=== PATIENT | male | born 1935 | race Caucasian/White ===

== ENCOUNTER → 2020-10-08 10:13 | Outpatient (BNVA) | payer MEDICARE, SELFPAY | PROVIDERS: PCP Internal Medicine; Visit Provider Hospitalist | DX: J43.2 Centrilobular emphysema (principal); J96.11 Chronic respiratory failure with hypoxia; C34.90 Malignant neoplasm of unspecified part of unspecified bronchus or lung | CPT/HCPCS: 99212 ==

== ENCOUNTER 2021-01-30 10:10 | Outpatient (REF) | payer MEDICARE, SELFPAY ==
--- NOTE | ~2021-01-30 | CT_ITS ---
EXAMINATION: CT CHEST WITHOUT CONTRAST CLINICAL INFORMATION: Malignant neoplasm. COMPARISON: None. TECHNIQUE: Multidetector volumetric CT imaging of the chest was done. Axial MIP volume rendering provided. Sagittal and coronal reformatted images were obtained. This CT examination was performed using dose optimization techniques as appropriate, variously including the following: *Automated exposure control *Adjustment of mA and/or kV according to patient size (this includes techniques or standardized protocols for targeted exams where dose is matched to indication/reason for exam; i.e. extremities or head) *Use of iterative reconstruction technique DLP: 185 mGy-cm FINDINGS: TECHNICAL SUPPORT PROFESSIONAL: Well-expanded lungs with mild haziness in the right lung base. LUNGS: There is centrilobular emphysema with patchy ill-defined densities in both lower lobes, likely atelectasis. There are postsurgical changes right upper lobe with slight loss of right upper lobe volume and ipsilateral mediastinal shift. There is mild bullous changes in the right upper lobe. Focal atelectatic changes seen in the left upper lobe superior segment with adjacent 6 x 7 mm nodule and mild tenting of the superior major fissure. Suspicious 4 mm subpleural nodule superior segment left lower lobe image 231/8, 2 mm calcified granulomas left upper lobe and right upper lobe axial image 57/7, right lower lobe image 72/7 and bilateral lower lobes image 103/7. MEDIASTINUM: The heart size and the great vessels are normal caliber. There are small shotty lymph nodes seen in the mediastinum. The largest aortic window lymph node measures 1.4 x 0.8 cm. The central trachea and the bronchi widely patent. Minimal coronary artery calcifications are present. There is no pericardial effusion. PLEURA: There is no pleural effusion. No pleural mass or thickening. AXILLA: No lymphadenopathy. UPPER ABDOMEN: Visualized liver, spleen, pancreas and bilateral adrenal glands are unremarkable. There is likely an infrarenal IVC filter. The gallbladder is distended and unremarkable. OSSEOUS STRUCTURES: No lytic or sclerotic process seen. CT/CT chest wo con IMPRESSION: Diffuse centrilobular emphysema with postsurgical changes right upper lobe. There is a worrisome nodule measuring 7 mm left upper lobe superior segment with tenting of superior major fissure. Suspicious 4 mm subpleural nodule left lower lobe. Calcified scattered granulomas, bullous changes in right upper lobe. There is 1.4 x 0.8 cm aortic window lymph node, worrisome. There are no previous exams available for comparison.
== END 2021-01-30 10:11 | disposition home or self-care (01) ==
LOC: HO.CT 10:10
PROVIDERS: Visit Provider Hospitalist
DX: C34.90 Malignant neoplasm of unspecified part of unspecified bronchus or lung (principal)
CPT/HCPCS: 71250

== ENCOUNTER → 2021-03-12 10:06 | Outpatient (BNVA) | payer MEDICARE, SELFPAY | PROVIDERS: PCP Internal Medicine; Visit Provider Hospitalist | DX: J96.11 Chronic respiratory failure with hypoxia (principal); J43.2 Centrilobular emphysema; C34.90 Malignant neoplasm of unspecified part of unspecified bronchus or lung; R59.0 Localized enlarged lymph nodes; R91.8 Other nonspecific abnormal finding of lung field; Z79.899 Other long term (current) drug therapy | CPT/HCPCS: 99212 ==

== ENCOUNTER 2021-08-13 15:19 | Outpatient (REF) | payer MEDICARE, SELFPAY ==
[2021-08-13 16:45] LABS: Anion Gap 12 (12-20); Blood Urea Nitrogen 23 mg/dL (9-16); Calcium 10.4 mg/dL (8.4-10.2); Carbon Dioxide 28 mmol/L (22-29); Chloride 102 mmol/L (96-108); Estimated Glomerular Filt Rate > 60; Glucose Random 93 mg/dL (60-115); Potassium 4.2 mmol/L (3.3-5.1); Sodium 138 mmol/L (135-145)
== END 2021-08-13 15:20 | disposition home or self-care (01) ==
LOC: HO.LAB 15:19
PROVIDERS: PCP Internal Medicine; Visit Provider Hospitalist
DX: C34.90 Malignant neoplasm of unspecified part of unspecified bronchus or lung (principal); R59.0 Localized enlarged lymph nodes; R91.8 Other nonspecific abnormal finding of lung field
CPT/HCPCS: 36415; 80048

== ENCOUNTER 2021-08-28 10:48 | Outpatient (REF) | payer MEDICARE, SELFPAY ==
--- NOTE | ~2021-08-28 | CT_ITS ---
EXAMINATION: CT CHEST WITH CONTRAST CLINICAL INFORMATION: Follow-up pulmonary nodules COMPARISON: Previous chest CT January 2021 TECHNIQUE: Multidetector volumetric CT imaging of the chest was obtained after the administration of 65 mL of Omnipaque 350 intravenous contrast without immediate adverse reactions. Axial MIP volume rendering provided. Sagittal and coronal reformatted images were obtained. This CT examination was performed using dose optimization techniques as appropriate, variously including the following: *Automated exposure control *Adjustment of mA and/or kV according to patient size (this includes techniques or standardized protocols for targeted exams where dose is matched to indication/reason for exam; i.e. extremities or head) *Use of iterative reconstruction technique DLP: 153 mGy-cm FINDINGS: LUNGS: There are postsurgical changes from right middle lobe lobectomy. There is stable biapical pleural parenchymal scarring, right greater than left. There is evidence of emphysema. There is a 2 mm calcified right upper lobe nodule axial image 73 series 7 that is stable. There is a 5 x 10 mm superior segment left lower lobe nodule adjacent to the fissure axial image 70 series 7. There is retraction of the fissure. This appears unchanged from previous exam. There are small nodules in the inferior segment of the lingula, largest measuring 4 mm axial image 176 series 7 that are stable. No new pulmonary nodule is seen. There is a scarring or subsegmental atelectasis lung bases. No endobronchial or endotracheal lesion is seen. MEDIASTINUM: There is mild coronary artery calcification. The heart does not appear enlarged. There is no pericardial effusion. There are no enlarged hilar or mediastinal lymph nodes. PLEURA: There is no pleural effusion. No pleural mass or thickening. AXILLA: No lymphadenopathy. UPPER ABDOMEN: There are bilateral renal low-attenuation lesions suggestive of cysts. There is diverticulosis of the colon. There is a partially visualized IVC filter. There may be fatty infiltration of the liver. OSSEOUS STRUCTURES: There are degenerative changes of the spine. There are postsurgical changes to the right third and fourth ribs. CT/CT chest w con IMPRESSION: Emphysema. Stable postsurgical changes following right middle lobe lobectomy. Stable pulmonary nodules, largest measuring 5 x 10 mm in the superior segment of the left lower lobe. Fleischner guidelines were followed.
[2021-08-28] MEDS: iohexoL 350 MG/ML 100 ML INFUS..BTL 65 ML IV (11:32)
== END 2021-08-28 10:49 | disposition home or self-care (01) ==
LOC: HO.CT 10:48
PROVIDERS: PCP Internal Medicine; Visit Provider Hospitalist
DX: R91.8 Other nonspecific abnormal finding of lung field (principal)
CPT/HCPCS: 71260; Q9967

== ENCOUNTER → 2021-09-01 09:53 | Outpatient (BNVA) | payer MEDICARE, SELFPAY | PROVIDERS: PCP Internal Medicine; Visit Provider Hospitalist | DX: J96.11 Chronic respiratory failure with hypoxia (principal); R13.10 Dysphagia, unspecified; J43.2 Centrilobular emphysema; C34.90 Malignant neoplasm of unspecified part of unspecified bronchus or lung | CPT/HCPCS: 99212 ==

== ENCOUNTER → 2021-12-31 09:38 | Outpatient (BNVA) | payer OTHER, SELFPAY | PROVIDERS: PCP Internal Medicine; Visit Provider Hospitalist | DX: J96.11 Chronic respiratory failure with hypoxia (principal); J43.2 Centrilobular emphysema; C34.90 Malignant neoplasm of unspecified part of unspecified bronchus or lung; R91.8 Other nonspecific abnormal finding of lung field | CPT/HCPCS: 94618; 99212 ==

== ENCOUNTER → 2022-07-02 09:48 | Outpatient (BNVA) | payer OTHER, SELFPAY | PROVIDERS: PCP Internal Medicine; Visit Provider Hospitalist | DX: J96.11 Chronic respiratory failure with hypoxia (principal); J43.2 Centrilobular emphysema; C34.90 Malignant neoplasm of unspecified part of unspecified bronchus or lung; R91.8 Other nonspecific abnormal finding of lung field | CPT/HCPCS: 99212 ==

== ENCOUNTER 2022-07-26 09:08 | Outpatient (REF) | payer OTHER, SELFPAY ==
--- NOTE | ~2022-07-26 | CT_ITS ---
EXAMINATION: CT CHEST WITHOUT CONTRAST CLINICAL INFORMATION: COMPARISON: Previous chest CT scans most recent August 2021 TECHNIQUE: Multidetector volumetric CT imaging of the chest was done. Axial MIP volume rendering provided. Sagittal and coronal reformatted images were obtained. This CT examination was performed using dose optimization techniques as appropriate, variously including the following: *Automated exposure control *Adjustment of mA and/or kV according to patient size (this includes techniques or standardized protocols for targeted exams where dose is matched to indication/reason for exam; i.e. extremities or head) *Use of iterative reconstruction technique DLP: 332 mGy-cm FINDINGS: LUNGS: There is evidence of emphysema. There are are postsurgical changes following right middle lobe lobectomy. There is increased masslike consolidation with air bronchograms in the right lower lobe. There are surrounding increased interstitial markings with interlobular septal thickening. There are more anterior smaller nodular opacities adjacent to the fissure largest measuring 1.2 cm axial image 310 series 4. These findings are new or increased compared to previous exams. There is increased groundglass attenuation in the medial right lower lobe posterior to the heart axial image 305 series 4. There is a smaller area of increased peripheral or subpleural attenuation in the right lower lobe axial image 320 series 4. These findings are new compared to previous chest CT from 2020. There is a 3 mm calcified right upper lobe nodule axial image 73 series 7 that is stable. There is a 8 mm peripheral or subpleural superior segment left lower lobe nodule adjacent to the fissure and some retraction of the fissure that is stable. There is a small peripheral or subpleural nodule versus atelectasis measuring 5 mm in the left lower lobe axial image 87 series 7 that is stable. There is a 7 mm lingular nodule axial image 176 series 7 that is stable. No endobronchial or endotracheal lesion. MEDIASTINUM: There are surgical clips in the right hilum. There are no enlarged hilar or mediastinal lymph nodes. Normal heart size. No pericardial effusion. CORONARY ARTERY CALCIFICATION: Mild PLEURA: There is no pleural effusion. No pleural mass or thickening. AXILLA: No lymphadenopathy. UPPER ABDOMEN: There may be fatty infiltration of the liver. There is a right renal cyst. There is diverticulosis. IVC filter partially visualized. OSSEOUS STRUCTURES: Posttraumatic or post surgical changes to the right third fourth and third CT/CT chest wo IV con IMPRESSION: Postsurgical changes following right middle lobe lobectomy. Increasing masslike consolidation with air bronchograms in the right lower lobe and surrounding increased interstitial markings and interlobular septal thickening. Infectious, inflammatory and neoplastic processes should be considered. New groundglass attenuation in the medial right lower lobe and smaller areas of increased peripheral or subpleural attenuation in the right lower lobe. Stable bilateral pulmonary nodules. Emphysema. Fleischner guidelines were followed.
--- NOTE | 2022-07-26 13:39 | PFT_ITS ---
Forced vital capacity 81%, FEV1 at 45%, FEV1/FVC ratio was 39, [id number] is 17%, and MVV 44%. Postbronchodilator therapy, there is no significant change. Total lung capacity 69%. Residual volume 65%. Diffusion capacity 21%. CONCLUSION: 1. Restrictive pulmonary disorder, moderately severe. 2. Severe obstructive airway disorder. 3. No response to bronchodilator therapy. 4. Clinical correlation is recommended. MD YONATHAN Ayala/MOD[facility] / [id number]
== END 2022-07-26 09:09 | disposition home or self-care (01) ==
LOC: HO.CT 09:08
PROVIDERS: PCP Internal Medicine; Visit Provider Hospitalist
DX: R91.8 Other nonspecific abnormal finding of lung field (principal); J43.2 Centrilobular emphysema
CPT/HCPCS: 71250; 94060; 94727; 94729

== ENCOUNTER 2022-08-17 09:12 | Outpatient (REF) | payer OTHER, SELFPAY ==
--- NOTE | ~2022-08-17 | PE_ITS ---
EXAMINATION: Fluorine-18 FDG PET/CT Scan CLINICAL INDICATION: Initial treatment management. Squamous cell carcinoma right lung. PROCEDURE: 59 minutes following the intravenous administration of 15.3 mCi of fluorine 18 FDG, images from the base of the skull to the mid thighs were obtained using a combined PET/CT scanner with CT scan based attenuation correction. No oral contrast was administered. No intravenous contrast was administered. Transverse, coronal, sagittal, and volume reconstruction projections were obtained. The patient's blood glucose as determined by a finger stick, was 109 mg/dl immediately prior to injection. Total CT exam dose-length product 644.93 mGy-cm * These CT images were obtained using dose optimization techniques as appropriate, variously including the following: Automated exposure control * Adjustment of mA and/or kV according to patient size (this includes techniques or standardized protocols for targeted exams where dose is matched to indication/reason for exam; i.e. extremities or head) * Use of iterative reconstruction technique COMPARISON: No previous PET/CT scan is available for comparison. CT scan of the chest dated 07/26/2022 is available for comparison. FINDINGS: (Slice numbers described in this report are numbered superiorly to inferiorly with slice #1 in the head) NECK AND VISUALIZED HEAD: There is a small focus of mildly increased FDG activity in the high right temporalis muscle, likely physiological. No foci of abnormal FDG activity are noted in the neck or visualized head. The distribution of FDG activity is physiological. There is no cervical lymphadenopathy. THORAX: The patient is status post right middle lobectomy, with surgical clips present medially in the mid right lung. There is an FDG avid posterolateral pleural-based opacity in the right upper lobe, SUVmax 3.3, slice 77/267. This measures 2.c 4 x 1.3 cm in largest transverse dimensions and approximately 2.1 cm cephalocaudad. This was not present on the 07/26/[address] scan. There is also opacity in the posterior aspect of the right upper lobe abutting the interlobar fissure which probably represents some fluid and is slightly more prominent than this opacity on the 07 2201/20/[address] scan and this shows weak FDG activity, SUVmax 1.9, slice 87/267. There is weak FDG activity associated with a groundglass opacity in the lingula showing SUVmax 2.1, slice 97/267. This also was not present on 07/26/2022. There are no additional foci of abnormally increased FDG activity in the lungs. The masslike consolidation present lateral in the right lower lobe visualized on 07/26/2022 is much smaller in size on the current study. This now has several separate smaller components, the largest of which is more posterior and superior, measuring 1.4 x 1.0 cm in largest transverse dimensions and approximately 0.9 cm cephalocaudad, centered on slice 99/267. Two additional more anterior and superior opacities also show no abnormal FDG activity. There is an additional new 0.8 cm anterior right upper lobe nodular opacity, slice 83/267 which is no abnormal FDG activity. No other suspicious pulmonary nodularity is present. Additional small subcentimeter pulmonary nodules visualized on the diagnostic 07/26/2022 CT scan are not well visualized on these nondiagnostic CT images. Other than the small amount of fluid present in the interlobar fissure described above, no significant pleural or pericardial fluid or pneumothorax is present. There is no mediastinal, supraclavicular, or axillary lymphadenopathy. ABDOMEN AND PELVIS: There are no foci of abnormal FDG activity in the abdomen or pelvis. Mild FDG activity present throughout the gastrointestinal tract is noted and is probably physiological. There is no suspicious focal component. There is diverticulosis without evidence of diverticulitis. The hollow viscera are otherwise unremarkable. The liver, gallbladder, spleen and adrenal glands are unremarkable. There is an exophytic cyst of indeterminate density, Hounsfield units 28 laterally in the lower pole the right kidney is markedly FDG photopenic and probably a simple cyst. A few much smaller cysts are present in both kidneys and none of these shows abnormal FDG activity. The kidneys are otherwise unremarkable. The adrenal glands and pancreas are unremarkable. There is no retroperitoneal, mesenteric, pelvic or inguinal lymphadenopathy. Multiple dense calcifications are present in the prostate gland and this shows mild diffuse FDG activity without a suspicious focal component. MUSCULOSKELETAL: No foci of abnormal FDG activity are present in the osseous structures. Postsurgical changes in the right chest wall are present. A focus of FDG activity adjacent to the right ischial tuberosity is likely due to an enthesopathy. There are degenerative changes in the spine. There is a grade 1 anterolisthesis of L5 on S1. There are no suspicious sclerotic or lytic lesions visualized. VASCULAR: Diffuse vascular calcifications including coronary are noted. There is aneurysmal dilatation of the infrarenal abdominal aorta measuring 4.0 cm in largest AP diameter. An inferior vena caval filter is in place. PET/PET CT fusion skull to thigh IMPRESSION: 1. Several FDG avid opacities have developed, as described above, since the recent 07/26/[address] scan. The most prominent of these is in the posterolateral aspect of the right upper lobe. The short-term development of these would make inflammatory or infectious etiologies the most likely explanation. Malignancy is not strongly suspected because of the recent development. 2. There are postsurgical changes from the right middle lobectomy, but no abnormalities strongly suspicious for recurrent or metastatic malignancy are present. 3. Aneurysmal dilatation of the infrarenal abdominal aorta measuring 4.0 cm. 4. Vascular calcifications including coronary.
== END 2022-08-17 09:13 | disposition home or self-care (01) ==
LOC: HO.PET 09:12
PROVIDERS: PCP Internal Medicine; Visit Provider Hospitalist
DX: C34.90 Malignant neoplasm of unspecified part of unspecified bronchus or lung (principal); J96.11 Chronic respiratory failure with hypoxia; J43.2 Centrilobular emphysema; R91.8 Other nonspecific abnormal finding of lung field
CPT/HCPCS: 99212

== ENCOUNTER 2022-11-19 12:31 | Outpatient (REF) | payer OTHER, SELFPAY ==
--- NOTE | ~2022-11-19 | CT_ITS ---
EXAMINATION: CT CHEST WITHOUT CONTRAST CLINICAL INFORMATION: R91.8 Other nonspecific abnormal finding of lung field. Pulmonary nodule. Lung CA. COMPARISON: None. TECHNIQUE: Multidetector volumetric CT imaging of the chest was done. Axial MIP volume rendering provided. Sagittal and coronal reformatted images were obtained. This CT examination was performed using dose optimization techniques as appropriate, variously including the following: *Automated exposure control *Adjustment of mA and/or kV according to patient size (this includes techniques or standardized protocols for targeted exams where dose is matched to indication/reason for exam; i.e. extremities or head) *Use of iterative reconstruction technique DLP: 169 mGy-cm. FINDINGS: LUNGS: Emphysema. Biapical pleural and parenchymal scarring right greater than left. Postsurgical changes following right middle lobe lobectomy. 6 x 8 mm peripheral or subpleural superior segment left lower lobe nodule abutting the fissure. There is some retraction of the fissure axial image 196 series 6. This is stable. Interval improvement in consolidation with air bronchograms seen in the right lower lobe compared to July 2022, most recent chest CT. Small stable calcified nodules, largest in the right upper lobe axial image 230 series 6. No definite new pulmonary nodules. MEDIASTINUM: Mild coronary artery calcification. Normal heart size. Mild dilatation of the thoracic aorta is stable. Small hilar and mediastinal lymph nodes, stable. Surgical clips in the right hilum. CORONARY ARTERY CALCIFICATION: Mild. PLEURA: There is no pleural effusion. No pleural mass or thickening. AXILLA: No lymphadenopathy. UPPER ABDOMEN: Unremarkable. OSSEOUS STRUCTURES: Degenerative changes of the spine. Postsurgical changes to the right ribs. CT/CT chest wo IV con IMPRESSION: Improved airspace disease with air bronchograms in the right lower lobe compared to July 2022. Otherwise stable exam. Fleischner guidelines were followed.
== END 2022-11-19 12:32 | disposition home or self-care (01) ==
LOC: HO.CT 12:31
PROVIDERS: PCP Internal Medicine; Visit Provider Hospitalist
DX: C34.90 Malignant neoplasm of unspecified part of unspecified bronchus or lung (principal); J44.9 Chronic obstructive pulmonary disease, unspecified; R91.8 Other nonspecific abnormal finding of lung field
CPT/HCPCS: 71250

== ENCOUNTER → 2022-11-26 09:55 | Outpatient (BNVA) | payer OTHER, SELFPAY | PROVIDERS: PCP Internal Medicine; Visit Provider Hospitalist | DX: J43.2 Centrilobular emphysema (principal); J96.11 Chronic respiratory failure with hypoxia; K74.3 Primary biliary cirrhosis; L94.0 Localized scleroderma [morphea]; R91.8 Other nonspecific abnormal finding of lung field; Z85.118 Personal history of other malignant neoplasm of bronchus and lung; Z79.899 Other long term (current) drug therapy | CPT/HCPCS: 94618; 99212 ==

== ENCOUNTER 2023-05-24 09:30 | Outpatient (AMB) | payer OTHER, SELFPAY ==
[2023-05-24 09:35] VITALS: BP 138/64; PULSE 75; O2SAT 97; BMI 26.0
--- NOTE | 2023-05-24 09:35 | MHC.OFFVIS ---
Intake Vital Signs 05/24/23 09:35 Height 5 ft 11 in Weight 186 lb 4.65 oz BMI 26.0 BP 138/64 Blood Pressure Location Lt brachial Position Sitting Pulse 75 Pulse Source Pulse Oximeter Pulse Oximetry (%) 97 Oxygen Delivery Method Nasal Cannula Oxygen Flow Rate 4 Intake Visit Reasons: COPD Allergies penicillin V Allergy (Severe, Verified 05/24/23 09:37) Swollen Ankle HPI HPI Comments History of Present Illness Details The patient is an 88-year-old gentleman known COPD, lung cancer status post therapy. He did follow-up recently with his oncologist and has been doing very well. He did have a CT scan last month done at [facility] and per report was stable. He has had to use oxygen for his chronic respiratory failure due to his COPD. Previously on 2 L and sometimes he will be able to take it off at rest. However, for the last month and a half he has been getting worse. He has noticed increased cough with white sputum increasing shortness of breath. He has had to increase oxygen to 4. He has not had any fever or any others symptoms. The other family members were tested for COVID-19 which was negative there were tested because of surgical needs. There were not symptomatic. 08/17/2022 the patient is here for a pulmonary follow-up visit. The patient overall is feeling worsening shortness of breath. He has had to increase his oxygen from 3-4 L. he is having issues getting enough oxygen tanks from his [facility] company. Will make a call to see if he can have that corrected. The patient did have a PET scan in view of the abnormal CT scan that he had recently. We did review the PET scan although I was not finally read. Initially appeared that there was a nodular density that had significant FDG activity in the right upper lung zone. However, this area did not correlate with the initial abnormal finding on the CT scan that prompted the PET scan. Suggesting that this is likely a inflammatory infectious process since is appears to be involving. There is a waxing waning component. Although malignancy still in differential. Will go ahead and% and a tumor conference to make sure that can provide him a multi disciplinary approach to his decision making. In the meantime will start him on antibiotics and I will follow-up with him after discussion during the tumor conference. 11/26/2022 the patient is here for pulmonary follow-up visit. Continues to have shortness of breath with activity. Specially when going up a flight of stairs. He does use the oxygen continuously. In the office we did every 6 minute walk test. He actually did well lobe air while sitting for a few minutes. Then with minimal activity quickly desaturated down to the low 80s. The patient did require up to 4-5 L to maintain a pulse ox in the low 90s with activity. Therefore is okay for him to increase the oxygen to 5 L specially diffuse going up a flight of stairs or a incline. We can consider a Oxymizer pendant if his oxygen requirement still continue to be high. He is already maximized on his respiratory therapy. In addition to that he did undergo a CT scan of the chest that we personally reviewed in the office. It appears that he has resolution of the airspace disease that he had previously noted. This is all reassuring that it was likely infectious process. He completed the antibiotics and he no longer needs further antibiotic therapy. 05/24/2023 the patient is here for pulmonary follow-up visit. Overall he is feeling well. He is sometimes taken off the oxygen during the daytime and taking a pulse ox of 92% which is reassuring. However at nighttime sometimes oxygen goes up to 99% on his oxygen. I did advise him to decrease the oxygen down to 3 L while sleeping. Will perform an overnight oximetry to make sure that his pulse ox is within normal limits. Patient understands that his pulse ox is too high this can result in central sleep apnea which could worsen his overall respiratory status. As far as his lung cancer history he had a CT scan back in November 2022 which appeared to be stable. Will plan to repeat the CT scan again in November 2023. The patient also continues current respiratory therapy. He is having some issues carrying the oxygen because he is having some contractures of his hands bilaterally. Therefore I will make a referral over to orthopedic surgery. 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) Surgical History (Updated 12/31/21 @ 10:26 by Paige Singh PA-C) History of thoracotomy (~2014) Social History (Updated 09/01/21 @ 10:08 by SANJAY Sahfer) Patient Tobacco Use Status: Former Tobacco user Tobacco use type: Cigarette Years Smoked: 50yrs Review of Systems Const Denies night sweats ENT Denies change in voice, Reports dysphagia, Denies lip swelling, Denies mouth pain, Reports nasal congestion, Reports nasal discharge and Denies tongue swelling Card Denies chest pain, Reports leg edema and Reports dyspnea on exertion Resp Reports cough and Reports dyspnea on exertion GI Reports dysphagia Musc Denies no additional complaints, Reports limited range of motion and Reports other (hand contractures) Neuro Denies Neuro-related abnormal movements Psych Denies no additional complaints Rasta/Lymph Denies easy bleeding and Denies lymphadenopathy Aller/Immun Denies lip swelling and Denies tongue swelling Physical Exam Vital Signs: Last Vital Signs Pulse 75 05/24/23 09:35 BP 138/64 05/24/23 09:35 Pulse Ox 97 05/24/23 09:35 Oxygen Delivery Method Nasal Cannula 05/24/23 09:35 Oxygen Flow Rate 4 05/24/23 09:35 BMI result Body Mass Index 26.0 Const General: alert Neck Neck: Yes normal visual inspection, Yes full ROM and Yes no lymphadenopathy Chest Chest palpation & inspection: normal inspection of the chest Resp Auscultation: wheezes and diminished lung sounds Cardio Rate: regular rate Rhythm: regular rhythm Heart sounds: S1 normal heart sound present and S2 normal heart sound present GI Palpation (GI): Soft to palpation and nontender Auscultation: normal bowel sounds Skin General skin exam: rashes and/or lesions noted Extrem Right upper extremity: Extremity exam: right hand Assessment & Plan Assessment & Plan (1) Chronic respiratory failure: Code(s): J96.10 - Chronic respiratory failure, unspecified whether with hypoxia or hypercapnia Qualifiers: Respiratory failure complication: hypoxia Qualified Code(s): J96.11 - Chronic respiratory failure with hypoxia (2) COPD (chronic obstructive pulmonary disease): Code(s): J44.9 - Chronic obstructive pulmonary disease, unspecified Qualifiers: COPD type: emphysema Emphysema type: centrilobular Qualified Code(s): J43.2 - Centrilobular emphysema (3) Lung cancer: Onset Date: ~2014 Comment: (Squamous cell carcinoma - s/p RML lobectomy 06/2015) Code(s): C34.90 - Malignant neoplasm of unspecified part of unspecified bronchus or lung Qualifiers: Laterality: unspecified laterality Lung location: unspecified part of lung Qualified Code(s): C34.90 - Malignant neoplasm of unspecified part of unspecified bronchus or lung (4) Pulmonary nodules: Code(s): R91.8 - Other nonspecific abnormal finding of lung field (5) Dupuytren contracture: Comment: Hard time carrying oxygen tanks Code(s): 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 [Dupuytren] Plan continue Trelegy VIDA as needed Oxygen 2 L at rest and 4 L with acitivity Decrease Oxygen 3L nasal cannula while sleeping and will request overnight oximetry Othopedic consultation to assess hand grasp, not able to carry his oxygen CT chest 11/2023 F/U 6 months Orders: Orders Overnight Pulse Oximetry Today J96.10 - Chronic respiratory failure, unspecified whether with hypoxia or hypercapnia CT chest wo IV con 11/14/23 C34.91 - Malignant neoplasm of unspecified part of right bronchus or lung Referrals Orthopedics Referral 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
== END 2023-05-24 10:00 | disposition home or self-care (01) ==
PROVIDERS: PCP Internal Medicine; Visit Provider Hospitalist
DX: J96.11 Chronic respiratory failure with hypoxia (principal); J43.2 Centrilobular emphysema; C34.90 Malignant neoplasm of unspecified part of unspecified bronchus or lung; R91.8 Other nonspecific abnormal finding of lung field; M72.0 Palmar fascial fibromatosis [Dupuytren]
CPT/HCPCS: 99214

== ENCOUNTER → 2023-05-24 09:30 | Outpatient (BNVA) | payer OTHER, SELFPAY | PROVIDERS: Visit Provider Hospitalist | DX: J43.2 Centrilobular emphysema (principal); R91.8 Other nonspecific abnormal finding of lung field; C34.90 Malignant neoplasm of unspecified part of unspecified bronchus or lung; J96.11 Chronic respiratory failure with hypoxia; M72.0 Palmar fascial fibromatosis [Dupuytren] | CPT/HCPCS: 99212 ==

== ENCOUNTER 2023-07-22 09:12 | Outpatient (AMB) | payer OTHER, SELFPAY ==
[2023-07-22 09:26] VITALS: BMI 25.9
--- NOTE | 2023-07-22 09:26 | A.OFFVIS_ITS ---
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 States he is not able to straighten out his right pinky, middle and ring finger and make a full close fist. Reports his left hand is not able to make a close fist with his left hand, has weakness as well. Denies prior treatment, numbness or tingling. 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 He complains of some stiffness in the right middle ring and small fingers that makes it impossible for him to put his hand flat on a table. He also has some pain in the PIP joints when he tries to make a tight fist or extend the digits. Regards to his left hand he and his said that he really can not carry anything in it because it hurts. Most of his pain is in his left middle finger PIP joint particularly when he tries to make a fist. He denies any injury and denies problems with numbness and tingling. He is walking around on home O2. He says that he had lung cancer about 7 years ago but has been released by his surgeon. He is under the care of Dr. Evans for pulmonology. [facility] Medical History (Updated 07/22/23 @ 10:05 by Evelyn Schwartz MD) White syndrome Dilation of aorta Lung mass Squamous cell carcinoma of right lung (~2014) Dysphagia Pulmonary nodules Lymphadenopathy, mediastinal Chronic respiratory failure COPD (chronic obstructive pulmonary disease) Lung cancer (~2014) Surgical History (Updated 12/31/21 @ 10:26 by Paige Singh PA-C) History of thoracotomy (~2014) Social History Patient Tobacco Use Status: Former Tobacco user Tobacco use type: Cigarette Years Smoked: 50yrs Physical Exam Vital Signs: BMI result Body Mass Index 25.9 Const General: cooperative, healthy appearing and no acute distress Orientation/consciousness: oriented to person and oriented to place HEENT Head: Yes normocephalic and Yes atraumatic Eyes EOM: EOMs intact bilaterally Resp Effort & Inspection: normal respiratory effort and able to speak in complete sentences Cardio Jugular venous distension: no JVD Skin General skin exam: turgor normal Rashes: no rashes Neuro General: oriented to person and oriented to place Extrem Other: Evaluation of bilateral Upper Extremity: Neuro: Median, ulnar, radial nerves motor and sensory grossly intact. Vascular: Cap refill brisk. ROM: Left: He can place his left hand flat on a table top. He can actively bring all of his fingers closed to almost a fist. We worked on some exercises and were able to get his fingertips closed to a fist. He does have some stiffness of the left index finger MCP joint which can get to about 70 degrees of flexion, and also of his left middle finger PIP joint. He experiences pain in the middle finger PIP joint when trying to increase flexion beyond about 80 degrees. He also does its that the middle finger can be quite painful when he tries to grasp something like a coffee cup or a bag. Right: Initially he can bring him the fingers of his right hand almost to a fist. With encouragement and some exercises he was able to better bring all of his fingers close to a fist. Can bring all of the MCP joints into full extension, and he can bring the index finger completely into extension. He does have some stiffness however in the right middle ring and small finger PIP joints which do not allow him to put his hand flat on the table. He does have a slender Dupuytren's cord extending from the palm to the middle finger. I do not appreciate in the Dupuytren's cords extending to the index, middle or small fingers. Skin: No lacerations or abrasions. General: No eccymosis. No erythema or evidence of infection. Radiographs: Three views of the right hand were taken by me today in clinic and reviewed by me. Really only fairly minimal arthritic changes at the PIP joints. No fractures or dislocations. 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 He has some stiffness in the PIP joints particularly of the right middle ring and small fingers. With flexion contractures of about 30 degrees at the PIP joints 2. Some mild stiffness in the PIP joints of the left hand. 3. Right middle finger Dupuytren's cord, possibly contributing to flexion contracture at the PIP joint I educated him about these conditions. Encouraged him to continue working on range of motion to maintain and perhaps improve some of his motion. I am going to order some OT hand therapy to see if perhaps this can help improve his hand function in both hands, and perhaps decrease some of the discomfort he has when using his left hand in particular. It is possible that he may need me to address the Dupuytren's cord affecting the right middle finger, but I want to address the generalized stiffness in the right hand 1st. The give us a call in September if they feel like he might need to come in and be seen. Once we address the overall stiffness., it is possible we might want to address that single Dupuytren's cord to the right middle finger. This might be best addressed of under local anesthesia. Orders: Orders XR hand RT min 3V Today M79.641 - Pain in right hand OT Evaluation and Treatment Today M25.641 - Stiffness of right hand, not elsewhere classified, M25.642 - Stiffness of left hand, not elsewhere classified, M79.642 - Pain in left hand Coding Level of Care Code New Pt Level 3 (83248) Diagnoses Stiffness of joints of both hands M25.641; M25.642 Dupuytren contracture M72.0 Left hand pain M79.642
== END 2023-07-22 10:19 | disposition home or self-care (01) ==
PROVIDERS: PCP Internal Medicine; Visit Provider Orthopaedic Surgery
DX: M25.641 Stiffness of right hand, not elsewhere classified (principal); M25.642 Stiffness of left hand, not elsewhere classified; M72.0 Palmar fascial fibromatosis [Dupuytren]; M79.642 Pain in left hand
CPT/HCPCS: 99203

== ENCOUNTER 2023-07-22 09:12 | Outpatient (REF) | payer OTHER, SELFPAY ==
--- NOTE | ~2023-07-22 | XR_ITS ---
EXAMINATION: XR HAND, RIGHT CLINICAL INFORMATION: Right hand pain, unable to extend 3rd-5th fingers COMPARISON: None available. TECHNIQUE: PA, lateral, and oblique views of the right hand. FINDINGS: BONES: Bony structures are intact. There is no focal bone destruction or periosteal reaction seen. JOINTS: There is mild fixed flexion of the right 3rd-5th fingers. Alignment of joints is otherwise normal. SOFT TISSUE: Soft tissue is normal. No radiopaque foreign body or abnormal air collection is seen. 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 XR/XR hand RT min 3V IMPRESSION: 1. Limited evaluation of right hand due to fixed flexion of the right 3rd-5th fingers. 2. No fracture or dislocation or signs of osteomyelitis are found. 3. Right wrist triangle of fibrocartilage complex chondrocalcinosis is present. Some fractures could be difficult to visualize on plain x-rays, especially in the osteopenic and relatively old patients. If there are significant clinical suspicion or symptoms of fracture, further evaluation with CT or MRI scan should be considered.
== END 2023-07-22 09:13 | disposition home or self-care (01) ==
LOC: HO.HOSX 09:12
PROVIDERS: PCP Internal Medicine; Visit Provider Orthopaedic Surgery
DX: M25.641 Stiffness of right hand, not elsewhere classified (principal); M25.642 Stiffness of left hand, not elsewhere classified; M72.0 Palmar fascial fibromatosis [Dupuytren]; M79.642 Pain in left hand
CPT/HCPCS: 73130; 99202

== ENCOUNTER 2023-09-13 11:00 | Outpatient (RCR) | payer OTHER, SELFPAY ==
--- NOTE | 2023-08-16 13:02 | MHC.OT.EP ---
[address] [phone] Occupational Therapy Plan of Care Patient Name: Marcus Renner Date of Evaluation: 08/16/23 Diagnosis: Bilateral hand stiffness Pain Location: 0-3, 6 with exercise Right ring finger .. left middle finger Pain Score: 6 Pain Scale Used: Numeric (0 - 10) Aggravating Factors: Gripping, stretching digits Alleviating Factors: Avoiding Assessment: Pt is 88 yo male with bilateral hand stiffness with symptoms of mild Dupuytens, OA and hand tremors presents with limitations with hand function . Pt will benefit from OT to improve hand pain, ROM and hand function. Pt is agreeable to OT one time a week due transportation isssue Frequency and Duration: The patient will be seen 1 x wk x 5 wks Short Term Goals: Demo indep with hand ROM ex Demo use of thermal modality for pain and for tissue softening prior to ex Demo compliance with night orthosis for digit extension PIP jt ext increase to less than 20 deg Prison Goals: Report increase ease with carrying O2 tank with right hand Report increased ease with straightening digits Demo indep with hand ROM and strengthening exercises Bilateral hand digits to 1 cm to DPC Treatment Plan: Therapeutic Exercise Therapeutic Activity Splinting Patient Education Paraffin MHP Joint Mobilization Soft Tissue Mobilization Electronically Signed By: Luzmaria Mcgraw OT CHT CLT Please Sign and return to therapist. Thank you once again for your referral.
--- NOTE | 2023-10-07 13:22 | MHC.OT.DC ---
[address] [phone] F: [phone] Occupational Therapy Discharge Note Patient Name: Marcus Renner Provider: Evelyn Schwartz Diagnosis: Bilateral hand stiffness Date of Surgery: Date of Evaluation: 08/16/23 Date of Discharge: 10/07/23 Treatments to Date: 4 Cancellations to Date: 1 No Shows to Date: Discharge Status: Improved Function Independent with HEP Discharge Summary: Good increase in right hand digits to DPC pre rx and bilaterally post rx Maintaining composite digit ext . Increased management consultant strength on the right by 5 lb Pain improving Severe bilateral hand intrinsic muscle atrophy Reports increased ease carrying 02 tank upstairs Electronically Signed By: Luzmaria Mcgraw OT CHT CLT Reviewed/agree with student documentation: Therapist: Please Sign and return to therapist, thank you for your referral.
== END 2023-10-07 13:23 | disposition home or self-care (01) ==
LOC: HO.OT 11:00
PROVIDERS: PCP Internal Medicine; Visit Provider Orthopaedic Surgery
DX: M25.641 Stiffness of right hand, not elsewhere classified (principal); M25.642 Stiffness of left hand, not elsewhere classified; M79.642 Pain in left hand; M20.091 Other deformity of right finger(s)
CPT/HCPCS: 29130; 97110; 97166; 97530; 97760

== ENCOUNTER 2023-10-25 12:54 | Outpatient (REF) | payer OTHER, SELFPAY ==
--- NOTE | ~2023-10-25 | CT_ITS ---
EXAMINATION: CT CHEST WITHOUT CONTRAST CLINICAL INFORMATION: History of squamous cell carcinoma of the right lung. COMPARISON: CT chest 11/19/2022. TECHNIQUE: Multidetector volumetric CT imaging of the chest was done. Axial MIP volume rendering provided. Sagittal and coronal reformatted images were obtained. This CT examination was performed using dose optimization techniques as appropriate, variously including the following: *Automated exposure control *Adjustment of mA and/or kV according to patient size (this includes techniques or standardized protocols for targeted exams where dose is matched to indication/reason for exam; i.e. extremities or head) *Use of iterative reconstruction technique DLP: 146 mGy-cm FINDINGS: LUNGS: Stable post surgical changes in the right lung from middle lobe lobectomy, with similar degree of architectural distortion and parenchymal thickening along the post surgical margins. Stable solid 0.9 x 0.8 cm nodule in the upper aspect of the left lower lobe posterior to the left major fissure (7:190). A few additional bilateral smaller mixed calcified and noncalcified pulmonary nodules are stable, for example: A 0.5 cm nodule along the right major fissure in the posteromedial right lung (7:215), a 0.4 cm nodule in the right apex (7:108), a 0.8 cm nodular-like pleural-based density in the left lower lobe (4:24), and a 0.7 cm nodular-like density in the inferior most lingula (7:521). MEDIASTINUM: Normal heart size. No pericardial effusion. No mediastinal or hilar lymphadenopathy, although evaluation of the hilar structures is limited in the absence of IV contrast. Subcentimeter thyroid nodule in the posterior aspect of the right lobe, unchanged. Enlarged central pulmonary arteries suggestive of pulmonary hypertension. Moderate atherosclerotic disease of the thoracic aorta, which is of normal caliber. CORONARY ARTERY CALCIFICATION: Multivessel coronary artery calcifications. PLEURA: No pleural effusion or pneumothorax. AXILLA: No lymphadenopathy. UPPER ABDOMEN: A few uab-kgawk-ni-characterize hypodensities in the upper pole of the right kidney, statistically favoring to represent simple cysts, unchanged compared to 11/19/2022. OSSEOUS STRUCTURES: Post surgical changes in the right upper chest wall with chronic deformities of the third and fourth anterolateral ribs. Degenerative change of the spine. No acute or aggressive appearing osseous findings. CT/CT chest wo IV con IMPRESSION: Stable examination compared to 11/19/2022. Recommend continue follow up according to oncology guidelines.
== END 2023-10-25 12:55 | disposition home or self-care (01) ==
LOC: HO.CT 12:54
PROVIDERS: PCP Internal Medicine; Visit Provider Hospitalist
DX: C34.91 Malignant neoplasm of unspecified part of right bronchus or lung (principal)
CPT/HCPCS: 71250

== ENCOUNTER 2023-11-24 09:56 | Outpatient (AMB) | payer OTHER, SELFPAY ==
--- NOTE | 2023-11-24 10:02 | A.OFFVIS_ITS ---
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 He did follow-up recently with his oncologist and has been doing very well. He did have a CT scan last month done at [facility] and per report was stable. He has had to use oxygen for his chronic respiratory failure due to his COPD. Previously on 2 L and sometimes he will be able to take it off at rest. However, for the last month and a half he has been getting worse. He has noticed increased cough with white sputum increasing shortness of breath. He has had to increase oxygen to 4. He has not had any fever or any others symptoms. The other family members were tested for COVID-19 which was negative there were tested because of surgical needs. There were not symptomatic. 08/17/2022 the patient is here for a pul monary follow-up visit. The patient overall is feeling worsening shortness of breath. He has had to increase his oxygen from 3-4 L. he is having issues getting enough oxygen tanks from his [employer]. Will make a call to see if he can have that corrected. The patient did have a PET scan in view of the abnormal CT scan that he had recently. We did review the PET scan although I was not finally read. Initially appeared that there was a nodular density that had significant FDG activity in the right upper lung zone. However, this area did not correlate with the initial abnormal finding on the CT scan that prompted the PET scan. Suggesting that this is likely a inflammatory infectious process since is appears to be involving. There is a waxing waning component. Although malignancy still in differential. Will go ahead and% and a tumor conference to make sure that can provide him a multi disciplinary approach to his decision making. In the meantime will start him on antibiotics and I will follow-up with him after discussion during the tumor conference. 11/26/2022 the patient is here for pulmon rafael follow-up visit. Continues to have shortness of breath with activity. Specially when going up a flight of stairs. He does use the oxygen continuously. In the office we did every 6 minute walk test. He actually did well lobe air while sitting for a few minutes. Then with minimal activity quickly desaturated down to the low 80s. The patient did require up to 4-5 L to maintain a pulse ox in the low 90s with activity. Therefore is okay for him to increase the oxygen to 5 L specially diffuse going up a flight of stairs or a incline. We can consider a Oxymizer pendant if his oxygen requirement still continue to be high. He is already maximized on his respiratory therapy. In addition to that he did undergo a CT scan of the chest that we personally reviewed in the office. It appears that he has resolution of the airspace disease that he had previously noted. This is all reassuring that it was likely infectious process. He completed the antibiotics and he no longer needs further antibiotic therapy. 05/24/2023 the patient is here for pulmo nary follow-up visit. Overall he is feeling well. He is sometimes taken off the oxygen during the daytime and taking a pulse ox of 92% which is reassuring. However at nighttime sometimes oxygen goes up to 99% on his oxygen. I did advise him to decrease the oxygen down to 3 L while sleeping. Will perform an overnight oximetry to make sure that his pulse ox is within normal limits. Patient understands that his pulse ox is too high this can result in central sleep apnea which could worsen his overall respiratory status. As far as his lung cancer history he had a CT scan back in November 2022 which appeared to be stable. Will plan to repeat the CT scan again in November 2023. The patient also continues current respiratory therapy. He is having some issues carrying the oxygen because he is having some contractures of his hands bilaterally. Therefore I will make a referral over to orthopedic surgery. 11/24/2023 the patient is here for a pul onmurdock follow-up visit. The patient overall has been doing well. He continues with his respiratory therapy. He does have a Trelegy inhaler. Does not use it all the time. He did develop a cough. He recently had upper respiratory illness. He was coughing and has some chest congestion. Seems like today things a little bit better. Still can hear the cough. In the meantime he is having issues with urinary retention he is going to have a procedure done by Urology regarding his bladder and his prostate. I do not believe that the Trelegy is affecting his urinary retention at this time so therefore he can continue specially since he has not taking it regularly. If after the procedures he is still having issues then we can consider removing the long-acting muscarinic antagonist. He continues use the oxygen with good effect. Continues use it with activity and sleep. In addition to that he did undergo a CT scan of the chest in October 2023 which I personally reviewed demonstrating stable postoperative changes and stable nodules. The patient overall is reassured. [facility] Medical History (Updated 07/22/23 @ 10:05 by Evelyn Schwartz MD) White syndrome Dilation of aorta Lung mass Squamous cell carcinoma of right lung (~2014) Dysphagia Pulmonary nodules Lymphadenopathy, mediastinal Chronic respiratory failure COPD (chronic obstructive pulmonary disease) Lung cancer (~2014) Surgical History (Updated 12/31/21 @ 10:26 by Paige Singh PA-C) History of thoracotomy (~2014) Social History Patient Tobacco Use Status: Former Tobacco user Tobacco use type: Cigarette Years Smoked: 50yrs Review of Systems Const Denies night sweats ENT Denies change in voice, Reports dysphagia, Denies lip swelling, Denies mouth pain, Reports nasal congestion, Reports nasal discharge and Denies tongue swelling Card Denies chest pain, Reports leg edema and Reports dyspnea on exertion Resp Reports cough and Reports dyspnea on exertion GI Reports dysphagia Reports as per HPI and Reports urinary frequency Musc Denies no additional complaints, Reports limited range of motion and Reports other (hand contractures) Neuro Denies Neuro-related abnormal movements Psych Denies no additional complaints Rasta/Lymph Denies easy bleeding and Denies lymphadenopathy Aller/Immun Denies lip swelling and Denies tongue swelling Physical Exam Vital Signs: Last Vital Signs Pulse 81 11/24/23 10:03 Pulse Ox 94 11/24/23 10:03 Oxygen Delivery Method Room Air 11/24/23 10:03 BMI result Body Mass Index 25.1 Const General: alert Neck Neck: Yes normal visual inspection, Yes full ROM and Yes no lymphadenopathy Chest Chest palpation & inspection: normal inspection of the chest Resp Auscultation: no wheezes and diminished lung sounds Cardio Rate: regular rate Rhythm: regular rhythm Heart sounds: S1 normal heart sound present and S2 normal heart sound present GI Palpation (GI): Soft to palpation and nontender Auscultation: normal bowel sounds Skin General skin exam: rashes and/or lesions noted Extrem Right upper extremity: Extremity exam: right hand Results Reviewed Results Reviewed: [address] [address] [address] Scan Report Signed Patient: Marcus Renner MR#: [id number] : 1935 Acct:[id number] Age/Sex: 88 / M ADM Date: 10/25/23 Loc: HO.CT Attending Dr: Trent Evans MD Ordering Physician: Trent Evans MD Date of Service: 10/25/23 Procedure(s): CT chest wo IV con Accession Number(s): [id number] cc: Amber Ramos MD; Trent Evans MD~ EXAMINATION: CT CHEST WITHOUT CONTRAST CLINICAL INFORMATION: History of squamous cell carcinoma of the right lung. COMPARISON: CT chest 11/19/2022. TECHNIQUE: Multidetector volumetric CT imaging of the chest was done. Axial MIP volume rendering provided. Sagittal and coronal reformatted images were obtained. This CT examination was performed using dose optimization techniques as appropriate, variously including the following: *Automated exposure control *Adjustment of mA and/or kV according to patient size (this includes techniques or standardized protocols for targeted exams where dose is matched to indication/reason for exam; i.e. extremities or head) *Use of iterative reconstruction technique DLP: 146 mGy-cm FINDINGS: LUNGS: Stable post surgical changes in the right lung from middle lobe lobectomy, with similar degree of architectural distortion and parenchymal thickening along the post surgical margins. Stable solid 0.9 x 0.8 cm nodule in the upper aspect of the left lower lobe posterior to the left major fissure (7:190). A few additional bilateral smaller mixed calcified and noncalcified pulmonary nodules are stable, for example: A 0.5 cm nodule along the right major fissure in the posteromedial right lung (7:215), a 0.4 cm nodule in the right apex (7:108), a 0.8 cm nodular-like pleural-based density in the left lower lobe (4:24), and a 0.7 cm nodular-like density in the inferior most lingula (7:521). MEDIASTINUM: Normal heart size. No pericardial effusion. No mediastinal or hilar lymphadenopathy, although evaluation of the hilar structures is limited in the absence of IV contrast. Subcentimeter thyroid nodule in the posterior aspect of the right lobe, unchanged. Enlarged central pulmonary arteries suggestive of pulmonary hypertension. Moderate atherosclerotic disease of the thoracic aorta, which is of normal caliber. CORONARY ARTERY CALCIFICATION: Multivessel coronary artery calcifications. PLEURA: No pleural effusion or pneumothorax. AXILLA: No lymphadenopathy. UPPER ABDOMEN: A few soj-eriup-zj-characterize hypodensities in the upper pole of the right kidney, statistically favoring to represent simple cysts, unchanged compared to 11/19/2022. OSSEOUS STRUCTURES: Post surgical changes in the right upper chest wall with chronic deformities of the third and fourth anterolateral ribs. Degenerative change of the spine. No acute or aggressive appearing osseous findings. CT/CT chest wo IV con IMPRESSION: Stable examination compared to 11/19/2022. Recommend continue follow up according to oncology guidelines. Dictated By: Neena Bernal Signed By: <Electronically signed by Neena Bernal in OV> 10/28/23 1627 DD/ 1340 TD/TT: Glazier Helper: Assessment & Plan Assessment & Plan (1) Chronic respiratory failure: Code(s): J96.10 - Chronic respiratory failure, unspecified whether with hypoxia or hypercapnia Qualifiers: Respiratory failure complication: hypoxia Qualified Code(s): J96.11 - Chronic respiratory failure with hypoxia (2) COPD (chronic obstructive pulmonary disease): Code(s): J44.9 - Chronic obstructive pulmonary disease, unspecified Qualifiers: COPD type: emphysema Emphysema type: centrilobular Qualified Code(s): J43.2 - Centrilobular emphysema (3) Lung cancer: Onset Date: ~2014 Comment: (Squamous cell carcinoma - s/p RML lobectomy 06/2015) Code(s): C34.90 - Malignant neoplasm of unspecified part of unspecified bronchus or lung Qualifiers: Laterality: unspecified laterality Lung location: unspecified part of lung Qualified Code(s): C34.90 - Malignant neoplasm of unspecified part of unspecified bronchus or lung (4) Pulmonary nodules: Code(s): R91.8 - Other nonspecific abnormal finding of lung field Plan continue Trelegy, consider changing to Breo if persistent urinary retention VIDA as needed Oxygen 2 L at rest and 4 L with acitivity Decrease Oxygen 3L nasal cannula while sleeping F/U 6 months Medications: New doxycycline hyclate 100 mg PO BID 10 days 20 caps 0RF Coding Level of Care Code Est Pt Level 4 (54510) Diagnoses Chronic respiratory failure with hypoxia J96.11 Respiratory failure complication: hypoxia Centrilobular emphysema J43.2 COPD type: emphysema Emphysema type: centrilobular Malignant neoplasm of lung, unspecified laterality, unspecified part of lung C34.90 Laterality: unspecified laterality Lung location: unspecified part of lung Pulmonary nodules R91.8 Time Spent (min) 17
[2023-11-24 10:03] VITALS: PULSE 81; O2SAT 94; BMI 25.1
== END 2023-11-24 10:16 | disposition home or self-care (01) ==
PROVIDERS: PCP Internal Medicine; Visit Provider Hospitalist
DX: J96.11 Chronic respiratory failure with hypoxia (principal); J43.2 Centrilobular emphysema; C34.90 Malignant neoplasm of unspecified part of unspecified bronchus or lung; R91.8 Other nonspecific abnormal finding of lung field
CPT/HCPCS: 99214

== ENCOUNTER → 2023-11-24 09:56 | Outpatient (BNVA) | payer OTHER, SELFPAY | PROVIDERS: PCP Internal Medicine; Visit Provider Hospitalist | DX: J96.11 Chronic respiratory failure with hypoxia (principal); J43.2 Centrilobular emphysema; R91.8 Other nonspecific abnormal finding of lung field; C34.90 Malignant neoplasm of unspecified part of unspecified bronchus or lung | CPT/HCPCS: 99212 ==

== ENCOUNTER 2024-06-06 09:50 | Outpatient (AMB) | payer OTHER, SELFPAY ==
[2024-06-06 09:55] VITALS: BP 128/60; PULSE 69; O2SAT 98; BMI 26.9
--- NOTE | 2024-06-06 09:55 | A.OFFVIS_ITS ---
Vital Signs 06/06/24 09:55 Height 5 ft 11 in Weight 192 lb 14.472 oz BMI 26.9 BP 128/60 Blood Pressure Location Rt brachial Position Sitting Pulse 69 Pulse Source Pulse Oximeter Pulse Oximetry (%) 98 Oxygen Delivery Method Room Air Comment 3 Liters Oxygen([facility]) Intake Visit Reasons: COPD Allergies penicillin V Allergy (Severe, Verified 06/06/24 09:55) Swollen Ankle HPI Comments Details: The patient is an 89-year-old gentleman known COPD, lung cancer status post therapy. He did follow-up recently with his oncologist and has been doing very well. He did have a CT scan last month done at [facility] and per report was stable. He has had to use oxygen for his chronic respiratory failure due to his COPD. Previously on 2 L and sometimes he will be able to take it off at rest. However, for the last month and a half he has been getting worse. He has noticed increased cough with white sputum increasing shortness of breath. He has had to increase oxygen to 4. He has not had any fever or any others symptoms. The other family members were tested for COVID-19 which was negative there were tested because of surgical needs. There were not symptomatic. 08/17/2022 the patient is here for a pulmonary follow-up visit. The patient overall is feeling worsening shortness of breath. He has had to increase his oxygen from 3-4 L. he is having issues getting enough oxygen tanks from his [employer] company. Will make a call to see if he can have that corrected. The patient did have a PET scan in view of the abnormal CT scan that he had recently. We did review the PET scan although I was not finally read. Initially appeared that there was a nodular density that had significant FDG activity in the right upper lung zone. However, this area did not correlate with the initial abnormal finding on the CT scan that prompted the PET scan. Suggesting that this is likely a inflammatory infectious process since is appears to be involving. There is a waxing waning component. Although malignancy still in differential. Will go ahead and% and a tumor conference to make sure that can provide him a multi disciplinary approach to his decision making. In the meantime will start him on antibiotics and I will follow-up with him after discussion during the tumor conference. 11/26/2022 the patient is here for pulmonary follow-up visit. Continues to have shortness of breath with activity. Specially when going up a flight of stairs. He does use the oxygen continuously. In the office we did every 6 minute walk test. He actually did well lobe air while sitting for a few minutes. Then with minimal activity quickly desaturated down to the low 80s. The patient did require up to 4-5 L to maintain a pulse ox in the low 90s with activity. Therefore is okay for him to increase the oxygen to 5 L specially diffuse going up a flight of stairs or a incline. We can consider a Oxymizer pendant if his oxygen requirement still continue to be high. He is already maximized on his respiratory therapy. In addition to that he did undergo a CT scan of the chest that we personally reviewed in the office. It appears that he has resolution of the airspace disease that he had previously noted. This is all reassuring that it was likely infectious process. He completed the antibiotics and he no longer needs further antibiotic therapy. 05/24/2023 the patient is here for pulmonary follow-up visit. Overall he is feeling well. He is sometimes taken off the oxygen during the daytime and taking a pulse ox of 92% which is reassuring. However at nighttime sometimes oxygen goes up to 99% on his oxygen. I did advise him to decrease the oxygen down to 3 L while sleeping. Will perform an overnight oximetry to make sure that his pulse ox is within normal limits. Patient understands that his pulse ox is too high this can result in central sleep apnea which could worsen his ov erall respiratory status. As far as his lung cancer history he had a CT scan back in November 2022 which appeared to be stable. Will plan to repeat the CT scan again in November 2023. The patient also continues current respiratory therapy. He is having some issues carrying the oxygen because he is having some contractures of his hands bilaterally. Therefore I will make a referral over to orthopedic surgery. 11/24/2023 the patient is here for a pulmonary follow-up visit. The patient overall has been doing well. He continues with his respiratory therapy. He does have a Trelegy inhaler. Does not use it all the time. He did develop a cough. He recently had upper respiratory illness. He was coughing and has some chest congestion. Seems like today things a little bit better. Still can hear the cough. In the meantime he is having issues with urinary retention he is going to have a procedure done by Urology regarding his bladder and his prostate. I do not believe that the Trelegy is affecting his urinary retention at this time so therefore he can continue specially since he has not taking it regularly. If after the procedures he is still having issues then we can consider removing the long-acting muscarinic antagonist. He continues use the oxygen with good effect. Continues use it with activity and sleep. In addition to that he did undergo a CT scan of the chest in October 2023 which I personally reviewed demonstrating stable postoperative changes and stable nodules. The patient overall is reassured. 06/06/2024 the patient is here for a pulmonary follow-up visit. The patient overall has been doing about the same. He does complaint of increasing dyspnea on exertion going up a flight of stairs going to the bathroom. Typically in the bathroom it is humid and feels like the [place] hard to breathe. He has a hard time because the bedrooms are upstairs. The looking to move to a 1 floor apartment but is been hard to locate 1. in the meantime the patient does have underlying wheezing. He does not use the Trelegy inhaler. I do believe that he needs to be on a respiratory regimen in order to improve his symptoms. Therefore, he will start albuterol and budesonide twice a day via the nebulizer. In addition to that he can always increase the oxygen up to 5 L per minute when going up a flight of stairs or exerting himself to a significant amount. Then after that he can come back to his baseline 3 L per minute. He should try to keep his pulse ox with an 88-96%. PENDING SALE TO [facility] Medical History (Updated 07/22/23 @ 10:05 by Evelyn Schwartz MD) White syndrome Dilation of aorta Lung mass Squamous cell carcinoma of right lung (~2014) Dysphagia Pulmonary nodules Lymphadenopathy, mediastinal Chronic respiratory failure COPD (chronic obstructive pulmonary disease) Lung cancer (~2014) Surgical History (Updated 12/31/21 @ 10:26 by Paige Singh PA-C) History of thoracotomy (~2014) Social History Patient Tobacco Use Status: Former Tobacco user Tobacco use type: Cigarette Years Smoked: 50yrs Review of Systems Const Denies night sweats ENT Denies change in voice, Reports dysphagia, Denies lip swelling, Denies mouth pain, Reports nasal congestion, Reports nasal discharge and Denies tongue swelling Card Denies chest pain, Reports leg edema and Reports dyspnea on exertion Resp Reports cough, Reports dyspnea on exertion and Reports wheezing GI Reports dysphagia Reports as per HPI and Reports urinary frequency Musc Denies no additional complaints, Reports limited range of motion and Reports other (hand contractures) Neuro Denies Neuro-related abnormal movements Psych Denies no additional complaints Rasta/Lymph Denies easy bleeding and Denies lymphadenopathy Aller/Immun Denies lip swelling, Denies tongue swelling and Reports wheezing Physical Exam Vital Signs: Last Vital Signs Pulse 69 06/06/24 09:55 BP 128/60 06/06/24 09:55 Pulse Ox 98 06/06/24 09:55 Oxygen Delivery Method Room Air 06/06/24 09:55 BMI result Body Mass Index 26.9 Const General: alert Neck Neck: Yes normal visual inspection, Yes full ROM and Yes no lymphadenopathy Chest Chest palpation & inspection: normal inspection of the chest Resp Effort & Inspection: prolonged expiratory phase Auscultation: wheezes and diminished lung sounds Cardio Rate: regular rate Rhythm: regular rhythm Heart sounds: S1 normal heart sound present and S2 normal heart sound present GI Palpation (GI): Soft to palpation and nontender Auscultation: normal bowel sounds Skin General skin exam: rashes and/or lesions noted Extrem Right upper extremity: Extremity exam: right hand Assessment & Plan Assessment & Plan (1) Chronic respiratory failure: Code(s): J96.10 - Chronic respiratory failure, unspecified whether with hypoxia or hypercapnia Category: Medical Qualifiers: Respiratory failure complication: hypoxia Qualified Code(s): J96.11 - Chronic respiratory failure with hypoxia (2) COPD (chronic obstructive pulmonary disease): Code(s): J44.9 - Chronic obstructive pulmonary disease, unspecified Category: Medical Qualifiers: COPD type: emphysema Emphysema type: centrilobular Qualified Code(s): J43.2 - Centrilobular emphysema (3) Lung cancer: Onset Date: ~2014 Comment: (Squamous cell carcinoma - s/p RML lobectomy 06/2015) Code(s): C34.90 - Malignant neoplasm of unspecified part of unspecified bronchus or lung Category: Medical Qualifiers: Laterality: unspecified laterality Lung location: unspecified part of lung Qualified Code(s): C34.90 - Malignant neoplasm of unspecified part of unspecified bronchus or lung (4) Pulmonary nodules: Code(s): R91.8 - Other nonspecific abnormal finding of lung field Category: Medical Plan stop Trelegy, consider changing to Breo if persistent urinary retention start albuterol nebs BID start Bidesonide nebs BID VIDA as needed Oxygen 2-3 L at rest and 4-5 L with acitivity F/U 4-6 months Medications: New albuterol sulfate 2.5 mg (3 mL) inhalation BID 180 mL 11RF 30 days J43.2 - Centrilobular emphysema budesonide 0.5 mg (2 mL) inhalation BID 120 mL 11RF 30 days J44.9 - Chronic obstructive pulmonary disease, unspecified Discontinued [id number] 100-62.5-25 mcg (Trelegy Ellipta) Discontinued Reason: Doctor's Order 1 inh inhalation DAILY 30 days 60 ea 11RF J44.9 - Chronic obstructive pulmonary disease, unspecified Coding Level of Care Code Est Pt Level 4 (57196) Complex EM visit Add On G2211 Diagnoses Chronic respiratory failure with hypoxia J96.11 Respiratory failure complication: hypoxia Centrilobular emphysema J43.2 COPD type: emphysema Emphysema type: centrilobular Malignant neoplasm of lung, unspecified laterality, unspecified part of lung C34.90 Laterality: unspecified laterality Lung location: unspecified part of lung Pulmonary nodules R91.8 Time Spent (min) 17
== END 2024-06-06 10:23 | disposition home or self-care (01) ==
PROVIDERS: PCP Internal Medicine; Visit Provider Hospitalist
DX: J96.11 Chronic respiratory failure with hypoxia (principal); J43.2 Centrilobular emphysema; C34.90 Malignant neoplasm of unspecified part of unspecified bronchus or lung; R91.8 Other nonspecific abnormal finding of lung field
CPT/HCPCS: 99214; G2211

== ENCOUNTER → 2024-06-06 09:50 | Outpatient (BNVA) | payer OTHER, SELFPAY | PROVIDERS: PCP Internal Medicine; Visit Provider Hospitalist | DX: J96.11 Chronic respiratory failure with hypoxia (principal); J43.2 Centrilobular emphysema; R91.8 Other nonspecific abnormal finding of lung field; C34.90 Malignant neoplasm of unspecified part of unspecified bronchus or lung | CPT/HCPCS: 99212 ==

== ENCOUNTER 2024-12-18 10:11 | Outpatient (AMB) | payer OTHER, SELFPAY ==
--- NOTE | 2024-12-18 10:15 | MHC.OFFVIS ---
Vital Signs 12/18/24 10:16 Height 5 ft 11 in Weight 197 lb 5.019 oz BMI 27.5 BP 150/78 H Blood Pressure Location Rt brachial Position Sitting Pulse 72 Pulse Source Pulse Oximeter Pulse Oximetry (%) 98 Oxygen Delivery Method Nasal Cannula Oxygen Flow Rate 5 Intake Visit Reasons: COPD Allergies penicillin V Allergy (Severe, Verified 12/18/24 10:23) Swollen Ankle HPI Comments Details: The patient is an 89-year-old gentleman known COPD, lung cancer status post therapy. He did follow-up recently with his oncologist and has been doing very well. He did have a CT scan last month done at [facility] and per report was stable. He has had to use oxygen for his chronic respiratory failure due to his COPD. Previously on 2 L and sometimes he will be able to take it off at rest. However, for the last month and a half he has been getting worse. He has noticed increased cough with white sputum increasing shortness of breath. He has had to increase oxygen to 4. He has not had any fever or any others symptoms. The other family members were tested for COVID-19 which was negative there were tested because of surgical needs. There were not symptomatic. 08/17/2022 the patient is here for a pulmonary follow-up visit. The patient overall is feeling worsening shortness of breath. He has had to increase his oxygen from 3-4 L. he is having issues getting enough oxygen tanks from his [email or web address] company. Will make a call to see if he can have that corrected. The patient did have a PET scan in view of the abnormal CT scan that he had recently. We did review the PET scan although I was not finally read. Initially appeared that there was a nodular density that had significant FDG activity in the right upper lung zone. However, this area did not correlate with the initial abnormal finding on the CT scan that prompted the PET scan. Suggesting that this is likely a inflammatory infectious process since is appears to be involving. There is a waxing waning component. Although malignancy still in differential. Will go ahead and% and a tumor conference to make sure that can provide him a multi disciplinary approach to his decision making. In the meantime will start him on antibiotics and I will follow-up with him after discussion during the tumor conference. 11/26/2022 the patient is here for pulmonary follow-up visit. Continues to have shortness of breath with activity. Specially when going up a flight of stairs. He does use the oxygen continuously. In the office we did every 6 minute walk test. He actually did well lobe air while sitting for a few minutes. Then with minimal activity quickly desaturated down to the low 80s. The patient did require up to 4-5 L to maintain a pulse ox in the low 90s with activity. Therefore is okay for him to increase the oxygen to 5 L specially diffuse going up a flight of stairs or a incline. We can consider a Oxymizer pendant if his oxygen requirement still continue to be high. He is already maximized on his respiratory therapy. In addition to that he did undergo a CT scan of the chest that we personally reviewed in the office. It appears that he has resolution of the airspace disease that he had previously noted. This is all reassuring that it was likely infectious process. He completed the antibiotics and he no longer needs further antibiotic therapy. 05/24/2023 the patient is here for pulmonary follow-up visit. Overall he is feeling well. He is sometimes taken off the oxygen during the daytime and taking a pulse ox of 92% which is reassuring. However at nighttime sometimes oxygen goes up to 99% on his oxygen. I did advise him to decrease the oxygen down to 3 L while sleeping. Will perform an overnight oximetry to make sure that his pulse ox is within normal limits. Patient understands that his pulse ox is too high this can result in central sleep apnea which could worsen his overall respiratory status. As far as his lung cancer history he had a CT scan back in November 2022 which appeared to be stable. Will plan to repeat the CT scan again in November 2023. The patient also continues current respiratory therapy. He is having some issues carrying the oxygen because he is having some contractures of his hands bilaterally. Therefore I will make a referral over to orthopedic surgery. 11/24/2023 the patient is here for a pulmonary follow-up visit. The patient overall has been doing well. He continues with his respiratory therapy. He does have a Trelegy inhaler. Does not use it all the time. He did develop a cough. He recently had upper respiratory illness. He was coughing and has some chest congestion. Seems like today things a little bit better. Still can hear the cough. In the meantime he is having issues with urinary retention he is going to have a procedure done by Urology regarding his bladder and his prostate. I do not believe that the Trelegy is affecting his urinary retention at this time so therefore he can continue specially since he has not taking it regularly. If after the procedures he is still having issues then we can consider removing the long-acting muscarinic antagonist. He continues use the oxygen with good effect. Continues use it with activity and sleep. In addition to that he did undergo a CT scan of the chest in October 2023 which I personally reviewed demonstrating stable postoperative changes and stable nodules. The patient overall is reassured. 06/06/2024 the patient is here for a pulmonary follow-up visit. The patient overall has been doing about the same. He does complaint of increasing dyspnea on exertion going up a flight of stairs going to the bathroom. Typically in the bathroom it is humid and feels like the Deuce hard to breathe. He has a hard time because the bedrooms are upstairs. The looking to move to a 1 floor apartment but is been hard to locate 1. in the meantime the patient does have underlying wheezing. He does not use the Trelegy inhaler. I do believe that he needs to be on a respiratory regimen in order to improve his symptoms. Therefore, he will start albuterol and budesonide twice a day via the nebulizer. In addition to that he can always increase the oxygen up to 5 L per minute when going up a flight of stairs or exerting himself to a significant amount. Then after that he can come back to his baseline 3 L per minute. He should try to keep his pulse ox with an 88-96%. 12/18/2024 the patient is here for a pulmonary follow-up visit. He is still having hard time with his breathing. Does not do much because of the shortness of breath is so significant. His oxygen came in go down to about the 70s if he is going up a flight of stairs on his oxygen. He is having to increase his oxygen to 5 L with activity. We did go for brief walking oximetry and sure enough he did require 5 L he is also very dyspneic and had to stop and recover. It did take several minutes to get the oxygen above 88% once he drop. The patient denies any significant lower extremity edema. Denies any chest pains or palpitations. States that he did have a cardiology evaluation and they felt that he was doing good her report. On exam he does have significant wheezing. Therefore will increase his nebulized therapy. He does respond well to the budesonide and DuoNeb twice a day. The seems like he needs additional therapies will add additional DuoNebs in between. In addition to that will do a low dose prednisone taper to see if this provide him some relief as well. He may be having some allergies now going into the spring so therefore will add some Singulair in case that is playing a role. Will follow-up in 3 months. He also needs to have a CT scan to follow-up with his previous CT scan specially with his worsening respiratory failure. [facility] Medical History (Updated 12/18/24 @ 21:55 by Trent Evans MD) White syndrome Dilation of aorta Lung mass Squamous cell carcinoma of right lung (~2014) Dysphagia Pulmonary nodules Lymphadenopathy, mediastinal Chronic respiratory failure COPD (chronic obstructive pulmonary disease) Lung cancer (~2014) Surgical History (Updated 12/31/21 @ 10:26 by Paige Singh PA-C) History of thoracotomy (~2014) Social History Patient Tobacco Use Status: Former Tobacco user Tobacco use type: Cigarette Years Smoked: 50yrs Review of Systems Const Denies night sweats ENT Denies change in voice, Reports dysphagia, Denies lip swelling, Denies mouth pain, Reports nasal congestion, Reports nasal discharge and Denies tongue swelling Card Denies chest pain, Reports leg edema, Reports dyspnea and Reports dyspnea on exertion Resp Reports cough, Reports dyspnea, Reports dyspnea on exertion and Reports wheezing GI Reports dysphagia Reports as per HPI and Reports urinary frequency Musc Denies no additional complaints, Reports limited range of motion and Reports other (hand contractures) Neuro Denies Neuro-related abnormal movements Psych Denies no additional complaints Rasta/Lymph Denies easy bleeding and Denies lymphadenopathy Aller/Immun Denies lip swelling, Denies tongue swelling and Reports wheezing Physical Exam Vital Signs: Last Vital Signs Pulse 72 12/18/24 10:16 BP 150/78 H 12/18/24 10:16 Pulse Ox 98 12/18/24 10:16 Oxygen Delivery Method Nasal Cannula 12/18/24 10:16 Oxygen Flow Rate 5 12/18/24 10:16 BMI result Body Mass Index 27.5 Const General: alert Neck Neck: Yes normal visual inspection, Yes full ROM and Yes no lymphadenopathy Chest Chest palpation & inspection: normal inspection of the chest Resp Effort & Inspection: prolonged expiratory phase Auscultation: wheezes and diminished lung sounds Cardio Rate: regular rate Rhythm: regular rhythm Heart sounds: S1 normal heart sound present and S2 normal heart sound present GI Palpation (GI): Soft to palpation and nontender Auscultation: normal bowel sounds Skin General skin exam: rashes and/or lesions noted Extrem Right upper extremity: Extremity exam: right hand Assessment & Plan Assessment & Plan (1) Chronic respiratory failure: Code(s): J96.10 - Chronic respiratory failure, unspecified whether with hypoxia or hypercapnia Category: Medical Qualifiers: Respiratory failure complication: hypoxia Qualified Code(s): J96.11 - Chronic respiratory failure with hypoxia (2) COPD (chronic obstructive pulmonary disease): Code(s): J44.9 - Chronic obstructive pulmonary disease, unspecified Category: Medical Qualifiers: COPD type: COPD with acute exacerbation Qualified Code(s): J44.1 - Chronic obstructive pulmonary disease with (acute) exacerbation (3) Lung cancer: Onset Date: ~2014 Comment: (Squamous cell carcinoma - s/p RML lobectomy 06/2015) Code(s): C34.90 - Malignant neoplasm of unspecified part of unspecified bronchus or lung Category: Medical Qualifiers: Laterality: unspecified laterality Lung location: unspecified part of lung Qualified Code(s): C34.90 - Malignant neoplasm of unspecified part of unspecified bronchus or lung (4) Pulmonary nodules: Code(s): R91.8 - Other nonspecific abnormal finding of lung field Category: Medical Plan continue Duoneb nebs QID continue Bidesonide nebs BID VIDA as needed start prednisone taper CT chest Oxygen 2-3 L at rest and 4-5 L with acitivity F/U 2-3 months Orders: Orders CT chest wo IV con Today C34.91 - Malignant neoplasm of unspecified part of right bronchus or lung, J43.2 - Centrilobular emphysema, J96.11 - Chronic respiratory failure with hypoxia Medications: New prednisone PO daily; Take 2 tabs daily x 10 days, then 1 tab daily x 10 days 20 days 30 tabs 0RF montelukast (Singulair) 10 mg PO BEDTIME 30 days 30 tabs 11RF J45.909 - Unspecified asthma, uncomplicated Changed From ipratropium-albuterol 0.5 mg-3 mg(2.5 mg base)/3 mL 3 mL inhalation BID 30 days 180 mL 11RF J44.9 - Chronic obstructive pulmonary disease, unspecified To ipratropium-albuterol 0.5 mg-3 mg(2.5 mg base)/3 mL 3 mL inhalation QID 30 days 360 mL 11RF J44.9 - Chronic obstructive pulmonary disease, unspecified Coding Level of Care Code Est Pt Level 4 (54782) Complex EM visit Add On G2211 Diagnoses Chronic respiratory failure with hypoxia J96.11 Respiratory failure complication: hypoxia Chronic obstructive pulmonary disease with acute exacerbation J44.1 COPD type: COPD with acute exacerbation Malignant neoplasm of lung, unspecified laterality, unspecified part of lung C34.90 Laterality: unspecified laterality Lung location: unspecified part of lung Pulmonary nodules R91.8 Time Spent (min) 18
[2024-12-18 10:16] VITALS: BP 150/78; PULSE 72; O2SAT 98; BMI 27.5
--- OUTSIDE RECORDS SUMMARY | 2024-12-18 11:38 | XMS_ITS | Clinical Summary ---
Author Organization [facility] ity Address [address] [place] [address] Care Team Providers Care Chief Informatics Officer Name Role Phone Amber Ramos MD Primary Care Provider [phone] Medical History Medical History Date Comments Essential (primary) hypertension DX:Essential (primary) hypertension Mixed hyperlipidemia DX:Mixed hy perlipidemia Social History Tobacco Use Types Packs/Day Years Used Date Smoking Tobacco: Former Sex and Gender Information Value Date Recorded Sex Assigned at Not on file Legal Sex Male 7:30 AM EST Gender Identity Not on file Sexual Orientation Not on file Obstetrics History Last Filed Vital Signs Vital Sign Reading Time Taken Comments Blood Pressure 146/70 02/15/2022 9:15 AM EDT Pulse 69 02/15/2022 9:15 AM EDT Temperature - - Respiratory Rate - - Oxygen Saturation 97% 02/15/2022 9:15 AM EDT 2 ltr oxygen Inhaled Oxygen Concentration - - Weight 86.2 kg (190 lb) 02/15/2022 9:15 AM EDT Height 180.3 cm (5' 11 ) 02/15/2022 9:15 AM EDT Body Mass Index 26.5 02/15/2022 9:15 AM EDT Plan of Treatment Health Maintenance Due Date Last Done Comments DTaP,Tdap,and Td Vaccines (1 - Tdap) 1954 Pneumococcal Vaccine: 50+ Ye ars (1 of 2 - PCV) 1954 Zoster Vaccines (1 of 2) 1987 RSV Immunization Patients 60 + Years Old (1 - 1-dose 75+ series) 2012 Cholesterol Screening (Lipid Panel) 09/05/2022 Depression Screening 09/05/2022 Falls Risk Assessment 09/05/2022 Social Influencers of Health Screening 09/05/2022 COVID-19 Vaccine (1 - 2023-2 5 season) 2024 Influenza Vaccine (#1) 2024 HIB Vaccines Aged Out No longer eligi ble based on patient's age to complete this topic HPV Vaccines Aged Out No longer eligi ble based on patient's age to complete this topic Hepatitis A Vaccines Aged Out No long er eligible based on patient's age to complete this topic Hepatitis B Vaccines Aged Out No long er eligible based on patient's age to complete this topic IPV Vaccines Aged Out No longer eligi ble based on patient's age to complete this topic MMR Vaccines Aged Out No longer eligi ble based on patient's age to complete this topic Meningococcal ACWY Vaccine Aged Out N o longer eligible based on patient's age to complete this topic Meningococcal B Vacine Aged Out No lo nger eligible based on patient's age to complete this topic RSV Immunization Patients Un davina 20 months Aged Out No longer eligible b ased on patient's age to complete this topic Varicella Vaccines Aged Out No longer eligible based on patient's age to complete this topic Advance Directives Documents on File Type Date Recorded Patient Deposition Operator Expl anation Health Care Decision (hx) 07/23/2015 AD DIAZ DIRECTIVE Health Care Decision (hx) 07/23/2015 AD DIAZ DIRECTIVE Health Care Decision (hx) 07/23/2015 AD DIAZ DIRECTIVE Health Care Decision (hx) 07/23/2015 AD DIAZ DIRECTIVE Health Care Decision (hx) 07/23/2015 AD DIAZ DIRECTIVE Health Care Decision (hx) 07/23/2015 AD DIAZ DIRECTIVE Health Care Decision (hx) 06/19/2015 AD DIAZ DIRECTIVE Health Care Decision (hx) 06/19/2015 AD DIAZ DIRECTIVE Health Care Decision (hx) 06/19/2015 AD DIAZ DIRECTIVE Health Care Decision (hx) 06/19/2015 AD DIAZ DIRECTIVE Health Care Decision (hx) 06/19/2015 AD DIAZ DIRECTIVE Health Care Decision (hx) 06/19/2015 AD DIAZ DIRECTIVE Care Teams Chief Informatics Officer Relationship Specialty Start Date End Date Amber Ramos MD [address] [place] [address] PCP - General Internal Medicine 01/14/22
== END 2024-12-18 10:49 | disposition home or self-care (01) ==
LOC: HO.HPS 10:11
PROVIDERS: PCP Internal Medicine; Visit Provider Hospitalist
DX: J96.11 Chronic respiratory failure with hypoxia (principal); J44.1 Chronic obstructive pulmonary disease with (acute) exacerbation; C34.90 Malignant neoplasm of unspecified part of unspecified bronchus or lung; R91.8 Other nonspecific abnormal finding of lung field
CPT/HCPCS: 99214; G2211

== ENCOUNTER → 2024-12-18 10:11 | Outpatient (BNVA) | payer OTHER, SELFPAY | PROVIDERS: PCP Internal Medicine; Visit Provider Hospitalist | DX: J44.1 Chronic obstructive pulmonary disease with (acute) exacerbation (principal); J96.11 Chronic respiratory failure with hypoxia; R91.8 Other nonspecific abnormal finding of lung field; C34.90 Malignant neoplasm of unspecified part of unspecified bronchus or lung | CPT/HCPCS: 99212 ==

== ENCOUNTER 2025-01-23 07:09 | Outpatient (REF) | payer OTHER, SELFPAY ==
--- NOTE | ~2025-01-23 | CT_ITS ---
CLINICAL HISTORY: C34.91 - Malignant neoplasm of unspecified part of right bronchus or lung CT chest without contrast Comparison: None Findings: The heart size is normal. Evaluation of the mediastinum is limited by lack of IV contrast. There are subcentimeter mediastinal lymph nodes: AP window lymph node 0.9 x 1.3 cm series 8, image 61. Severe centrilobular emphysema. Postsurgical changes of the right lung apex and hilum. 6.6 x 8.2 mm nodular density of the left lower lobe series 7, image 67. The visualized upper abdomen is unremarkable. No acute fractures. IMPRESSION: Postsurgical changes of the right lung. 8.2 mm nodular density of the left lower lobe. Comparison to the prior imaging examination is recommended. Subcentimeter mediastinal lymph nodes. This document has been electronically signed by: Ada Ritchie MD on 01/24/2025 13:05:23
== END 2025-01-23 07:10 | disposition home or self-care (01) ==
LOC: HO.CT 07:09
PROVIDERS: PCP Internal Medicine; Visit Provider Hospitalist
DX: C34.91 Malignant neoplasm of unspecified part of right bronchus or lung (principal); J43.2 Centrilobular emphysema; J96.11 Chronic respiratory failure with hypoxia
CPT/HCPCS: 71250

== ENCOUNTER → 2025-01-23 07:10 | Outpatient (BNV) | payer OTHER, SELFPAY | PROVIDERS: PCP Internal Medicine; Visit Provider Nuclear Medicine | DX: R91.1 Solitary pulmonary nodule (principal); Z98.890 Other specified postprocedural states | CPT/HCPCS: 71250 ==

== ENCOUNTER 2025-03-12 09:23 | Outpatient (AMB) | payer OTHER, SELFPAY ==
[2025-03-12 09:27] VITALS: BP 146/68; PULSE 80; O2SAT 96; BMI 27.5
--- NOTE | 2025-03-12 09:27 | MHC.OFFVIS ---
Vital Signs 03/12/25 09:27 Height 5 ft 11 in Weight 197 lb 5.019 oz BMI 27.5 BP 146/68 H Blood Pressure Location Lt brachial Position Sitting Pulse 80 Pulse Source Pulse Oximeter Pulse Oximetry (%) 96 Oxygen Delivery Method Nasal Cannula Oxygen Flow Rate 5 Intake Visit Reasons: COPD Design/Animation Instructor Required: No Allergies penicillin V Allergy (Severe, Verified 03/12/25 09:30) Swollen Ankle HPI Comments Details: The patient is an 89-year-old gentleman known COPD, lung cancer status post therapy. He did follow-up recently with his oncologist and has been doing very well. He did have a CT scan last month done at [facility] and per report was stable. He has had to use oxygen for his chronic respiratory failure due to his COPD. Previously on 2 L and sometimes he will be able to take it off at rest. However, for the last month and a half he has been getting worse. He has noticed increased cough with white sputum increasing shortness of breath. He has had to increase oxygen to 4. He has not had any fever or any others symptoms. The other family members were tested for COVID-19 which was negative there were tested because of surgical needs. There were not symptomatic. 08/17/2022 the patient is here for a pulmonary follow-up visit. The patient overall is feeling worsening shortness of breath. He has had to increase his oxygen from 3-4 L. he is having issues getting enough oxygen tanks from his [employer] company. Will make a call to see if he can have that corrected. The patient did have a PET scan in view of the abnormal CT scan that he had recently. We did review the PET scan although I was not finally read. Initially appeared that there was a nodular density that had significant FDG activity in the right upper lung zone. However, this area did not correlate with the initial abnormal finding on the CT scan that prompted the PET scan. Suggesting that this is likely a inflammatory infectious process since is appears to be involving. There is a waxing waning component. Although malignancy still in differential. Will go ahead and% and a tumor conference to make sure that can provide him a multi disciplinary approach to his decision making. In the meantime will start him on antibiotics and I will follow-up with him after discussion during the tumor conference. 11/26/2022 the patient is here for pulmonary follow-up visit. Continues to have shortness of breath with activity. Specially when going up a flight of stairs. He does use the oxygen continuously. In the office we did every 6 minute walk test. He actually did well lobe air while sitting for a few minutes. Then with minimal activity quickly desaturated down to the low 80s. The patient did require up to 4-5 L to maintain a pulse ox in the low 90s with activity. Therefore is okay for him to increase the oxygen to 5 L specially diffuse going up a flight of stairs or a incline. We can consider a Oxymizer pendant if his oxygen requirement still continue to be high. He is already maximized on his respiratory therapy. In addition to that he did undergo a CT scan of the chest that we personally reviewed in the office. It appears that he has resolution of the airspace disease that he had previously noted. This is all reassuring that it was likely infectious process. He completed the antibiotics and he no longer needs further antibiotic therapy. 05/24/2023 the patient is here for pulmonary follow-up visit. Overall he is feeling well. He is sometimes taken off the oxygen during the daytime and taking a pulse ox of 92% which is reassuring. However at nighttime sometimes oxygen goes up to 99% on his oxygen. I did advise him to decrease the oxygen down to 3 L while sleeping. Will perform an overnight oximetry to make sure that his pulse ox is within normal limits. Patient understands that his pulse ox is too high this can result in central sleep apnea which could worsen his overall respiratory status. As far as his lung cancer history he had a CT scan back in November 2022 which appeared to be stable. Will plan to repeat the CT scan again in November 2023. The patient also continues current respiratory therapy. He is having some issues carrying the oxygen because he is having some contractures of his hands bilaterally. Therefore I will make a referral over to orthopedic surgery. 11/24/2023 the patient is here for a pulmonary follow-up visit. The patient overall has been doing well. He continues with his respiratory therapy. He does have a Trelegy inhaler. Does not use it all the time. He did develop a cough. He recently had upper respiratory illness. He was coughing and has some chest congestion. Seems like today things a little bit better. Still can hear the cough. In the meantime he is having issues with urinary retention he is going to have a procedure done by Urology regarding his bladder and his prostate. I do not believe that the Trelegy is affecting his urinary retention at this time so therefore he can continue specially since he has not taking it regularly. If after the procedures he is still having issues then we can consider removing the long-acting muscarinic antagonist. He continues use the oxygen with good effect. Continues use it with activity and sleep. In addition to that he did undergo a CT scan of the chest in October 2023 which I personally reviewed demonstrating stable postoperative changes and stable nodules. The patient overall is reassured. 06/06/2024 the patient is here for a pulmonary follow-up visit. The patient overall has been doing about the same. He does complaint of increasing dyspnea on exertion going up a flight of stairs going to the bathroom. Typically in the bathroom it is humid and feels like the Deuce hard to breathe. He has a hard time because the bedrooms are upstairs. The looking to move to a 1 floor apartment but is been hard to locate 1. in the meantime the patient does have underlying wheezing. He does not use the Trelegy inhaler. I do believe that he needs to be on a respiratory regimen in order to improve his symptoms. Therefore, he will start albuterol and budesonide twice a day via the nebulizer. In addition to that he can always increase the oxygen up to 5 L per minute when going up a flight of stairs or exerting himself to a significant amount. Then after that he can come back to his baseline 3 L per minute. He should try to keep his pulse ox with an 88-96%. 12/18/2024 the patient is here for a pulmonary follow-up visit. He is still having hard time with his breathing. Does not do much because of the shortness of breath is so significant. His oxygen came in go down to about the 70s if he is going up a flight of stairs on his oxygen. He is having to increase his oxygen to 5 L with activity. We did go for brief walking oximetry and sure enough he did require 5 L he is also very dyspneic and had to stop and recover. It did take several minutes to get the oxygen above 88% once he drop. The patient denies any significant lower extremity edema. Denies any chest pains or palpitations. States that he did have a cardiology evaluation and they felt that he was doing good her report. On exam he does have significant wheezing. Therefore will increase his nebulized therapy. He does respond well to the budesonide and DuoNeb twice a day. The seems like he needs additional therapies will add additional DuoNebs in between. In addition to that will do a low dose prednisone taper to see if this provide him some relief as well. He may be having some allergies now going into the spring so therefore will add some Singulair in case that is playing a role. Will follow-up in 3 months. He also needs to have a CT scan to follow-up with his previous CT scan specially with his worsening respiratory failure. 03/12/2025 the patient is here for a pulmonary follow-up visit. The patient is still struggling with breathing. He is on 5 L with activity usually just 4 L at rest. He desaturates quickly. He lives in a two-story home and is hard for him to climb the stairs. He did try the nebulized therapy but no significant improvement. He did have a recent CT scan of the chest which I personally reviewed. The patient does have extensive emphysema does have a 9 mm pulmonary nodule in the left lower lobe which appears to be pretty stable. No evidence of any recurrence that I could appreciate on the CAT scan for his cancer standpoint but the patient understands that he does have extensive emphysema. He also has significant mucus production consistent with chronic bronchitis. Will go ahead and start him on Daliresp. He is aware of the side effects. Hopefully can tolerated. In addition to that will keep him on a small dose of prednisone and will try him on some antibiotics as well. All the try to improve his mucus plugging to try helping. He is going to get an EKG and also provide a sputum culture as well. [facility] Medical History (Updated 12/18/24 @ 21:55 by Trent Evans MD) White syndrome Dilation of aorta Lung mass Squamous cell carcinoma of right lung (~2014) Dysphagia Pulmonary nodules Lymphadenopathy, mediastinal Chronic respiratory failure COPD (chronic obstructive pulmonary disease) Lung cancer (~2014) Surgical History (Updated 12/31/21 @ 10:26 by Paige Singh PA-C) History of thoracotomy (~2014) Social History Patient Tobacco Use Status: Former Tobacco user Tobacco use type: Cigarette Years Smoked: 50yrs Review of Systems Const Denies night sweats ENT Denies change in voice, Reports dysphagia, Denies lip swelling, Denies mouth pain, Reports nasal congestion, Reports nasal discharge and Denies tongue swelling Card Denies chest pain, Reports leg edema, Reports dyspnea and Reports dyspnea on exertion Resp Reports cough, Reports dyspnea, Reports dyspnea on exertion and Reports wheezing GI Reports dysphagia Reports as per HPI and Reports urinary frequency Musc Denies no additional complaints, Reports limited range of motion and Reports other (hand contractures) Neuro Denies Neuro-related abnormal movements Psych Denies no additional complaints Rasta/Lymph Denies easy bleeding and Denies lymphadenopathy Aller/Immun Denies lip swelling, Denies tongue swelling and Reports wheezing Physical Exam Vital Signs: Last Vital Signs Pulse 80 03/12/25 09:27 BP 146/68 H 03/12/25 09:27 Pulse Ox 96 03/12/25 09:27 Oxygen Delivery Method Nasal Cannula 03/12/25 09:27 Oxygen Flow Rate 5 03/12/25 09:27 BMI result Body Mass Index 27.5 Const General: alert Neck Neck: Yes normal visual inspection, Yes full ROM and Yes no lymphadenopathy Chest Chest palpation & inspection: normal inspection of the chest Resp Effort & Inspection: prolonged expiratory phase Auscultation: wheezes and diminished lung sounds Cardio Rate: regular rate Rhythm: regular rhythm Heart sounds: S1 normal heart sound present and S2 normal heart sound present GI Palpation (GI): Soft to palpation and nontender Auscultation: normal bowel sounds Skin General skin exam: rashes and/or lesions noted Extrem Right upper extremity: Extremity exam: right hand Assessment & Plan Assessment & Plan (1) Chronic respiratory failure: Code(s): J96.10 - Chronic respiratory failure, unspecified whether with hypoxia or hypercapnia Category: Medical Qualifiers: Respiratory failure complication: hypoxia Qualified Code(s): J96.11 - Chronic respiratory failure with hypoxia (2) COPD (chronic obstructive pulmonary disease): Code(s): J44.9 - Chronic obstructive pulmonary disease, unspecified Category: Medical Qualifiers: COPD type: COPD with acute exacerbation Qualified Code(s): J44.1 - Chronic obstructive pulmonary disease with (acute) exacerbation (3) Lung cancer: Onset Date: ~2014 Comment: (Squamous cell carcinoma - s/p RML lobectomy 06/2015) Code(s): C34.90 - Malignant neoplasm of unspecified part of unspecified bronchus or lung Category: Medical Qualifiers: Laterality: unspecified laterality Lung location: unspecified part of lung Qualified Code(s): C34.90 - Malignant neoplasm of unspecified part of unspecified bronchus or lung (4) Pulmonary nodules: Code(s): R91.8 - Other nonspecific abnormal finding of lung field Category: Medical Plan continue Duoneb nebs QID continue Bidesonide nebs BID VIDA as needed start prednisone daily start Daliresp 500mcg start Azithromycin MWF Oxygen 2-3 L at rest and 4-5 L with acitivity sputum cx EKG F/U 2-3 months Orders: Orders Sputum Cult + Gram stain Today R91.1 - Solitary pulmonary nodule ECG 12 lead EKG Today J44.9 - Chronic obstructive pulmonary disease, unspecified Medications: New roflumilast (Daliresp) 500 mcg PO DAILY 30 tabs 6RF 30 days prednisone 10 mg PO DAILY 30 tabs 2RF 30 days azithromycin Take 1 tablet on Tuesday/Tuesday/Tuesday 250 mg PO 3XW 12 tabs 6RF 28 days K21.9 - Gastro-esophageal reflux disease without esophagitis Coding Level of Care Code Est Pt Level 4 (96718) Complex EM visit Add On G2211 Diagnoses Chronic respiratory failure with hypoxia J96.11 Respiratory failure complication: hypoxia Chronic obstructive pulmonary disease with acute exacerbation J44.1 COPD type: COPD with acute exacerbation Malignant neoplasm of lung, unspecified laterality, unspecified part of lung C34.90 Laterality: unspecified laterality Lung location: unspecified part of lung Pulmonary nodules R91.8 Time Spent (min) 17
--- OUTSIDE RECORDS SUMMARY | 2025-03-12 10:17 | XMS_ITS | Clinical Summary ---
Author Organization [facility] ity Address [address] [place] [address] Care Team Providers Care Combatant Swimmer Name Role Phone Amber Ramos MD Primary Care Provider [phone] Medical History Medical History Date Comments Essential [...] Vaccines (1 of 2) 1987 RSV Immunization Adult Patie nts (1 - 1-dose 75+ series) 2012 Cholesterol Screening (Lipid Panel) 09/05/2022 Depression Screening 09/05/2022 Falls Risk Assessment 09/05/2022 Social Influencers of Health Screening 09/05/2022 COVID-19 Vaccine (2023-2 5 season) 2024 Influenza Vaccine (Season Ended) 2025 HIB Vaccines Aged Out No longer eligi [...] age to complete this topic Meningococcal B Vaccine Aged Out No l onger eligible based on patient's age to complete this topic RSV Immunization Patients Un davina 20 months Aged Out No longer eligible b ased on patient's age to complete this topic Varicella Vaccines Aged Out No longer eligible based on patient's age to complete this topic Advance Directives Documents on File Type Date Recorded Patient Network Coordinator Expl anation Health Care Decision (hx) 07/23/2015 [...] (hx) 06/19/2015 AD DIAZ DIRECTIVE Care Teams Combatant Swimmer Relationship Specialty Start Date End Date Amber Ramos MD [address] [place] [address] PCP - General Internal Medicine 01/14/22
== END 2025-03-12 09:51 | disposition home or self-care (01) ==
LOC: HO.HPS 09:23
PROVIDERS: PCP Internal Medicine; Visit Provider Hospitalist
DX: J96.11 Chronic respiratory failure with hypoxia (principal); J44.1 Chronic obstructive pulmonary disease with (acute) exacerbation; C34.90 Malignant neoplasm of unspecified part of unspecified bronchus or lung; R91.8 Other nonspecific abnormal finding of lung field
CPT/HCPCS: 99214; G2211

== ENCOUNTER → 2025-03-12 09:23 | Outpatient (BNVA) | payer OTHER, SELFPAY | PROVIDERS: PCP Internal Medicine; Visit Provider Hospitalist | DX: J44.1 Chronic obstructive pulmonary disease with (acute) exacerbation (principal); J96.11 Chronic respiratory failure with hypoxia; C34.91 Malignant neoplasm of unspecified part of right bronchus or lung; R91.8 Other nonspecific abnormal finding of lung field | CPT/HCPCS: 99212 ==

== ENCOUNTER → 2025-04-04 10:37 | Outpatient (REF) | payer OTHER, SELFPAY ==
--- NOTE | 2025-04-04 10:42 | ECG_ITS ---
Test Reason : copd Blood Pressure : */* mmHG Vent. Rate : 71 BPM Atrial Rate : 71 BPM P-R Int : 168 ms QRS Dur : 98 ms QT Int : 372 ms P-R-T Axes : 57 12 75 degrees QTcB Int : 404 ms Sinus rhythm with Premature atrial complexes Incomplete right bundle branch block Nonspecific ST and T wave abnormality Abnormal ECG No previous ECGs available Referred By: Trent Evans Electronically Signed By: DAYDAY RICH MD
== END ==
LOC: HO.CARD 10:37
PROVIDERS: PCP Internal Medicine; Visit Provider Hospitalist
DX: J44.9 Chronic obstructive pulmonary disease, unspecified (principal); R91.1 Solitary pulmonary nodule
CPT/HCPCS: 87070; 87205; 93005

== ENCOUNTER → 2025-04-04 10:42 | Outpatient (BNV) | payer OTHER, SELFPAY | PROVIDERS: PCP Internal Medicine; Visit Provider Internal Medicine Cardiovascular Disease | DX: I49.1 Atrial premature depolarization (principal); I45.10 Unspecified right bundle-branch block | CPT/HCPCS: 93010 ==

== ENCOUNTER 2025-05-23 09:56 | Outpatient (AMB) | payer OTHER, SELFPAY ==
--- NOTE | 2025-05-23 09:58 | A.OFFVIS_ITS ---
Vital Signs 05/23/25 09:59 Height 5 ft 11 in Weight 164 lb BMI 22.9 BP 118/67 Blood Pressure Location Lt brachial Position Sitting Pulse 90 Pulse Source Pulse Oximeter Pulse Oximetry (%) 98 Oxygen Delivery Method Nasal Cannula Oxygen Flow Rate 5 Intake Visit Reasons: COPD Allergies penicillin V Allergy (Severe, Verified 05/23/25 10:02) Swollen Ankle HPI Comments Details: The patient is an 89-year-old gentleman known COPD, lung cancer status post therapy. He did follow-up recently with his oncologist and has been doing very well. He did have a CT scan last month done at [facility] and per report was stable. He has had to use oxygen for his chronic respiratory failure due to his COPD. Previously on 2 L and sometimes he will be able to take it off at rest. However, for the last month and a half he has been getting worse. He has noticed increased cough with white sputum increasing shortness of breath. He has had to increase oxygen to 4. He has not had any fever or any others symptoms. The other family members were tested for COVID-19 which was negative there were tested because of surgical needs. There were not symptomatic. 08/17/2022 the patient is here for a pulmonary follow-up visit. The patient overall is feeling worsening shortness of breath. He has had to increase his oxygen from 3-4 L. he is having issues getting enough oxygen tanks from his [employer] company. Will make a call to see if he can have that corrected. The patient did have a PET scan in view of the abnormal CT scan that he had recently. We did review the PET scan although I was not finally read. Initially appeared that there was a nodular density that had significant FDG activity in the right upper lung zone. However, this area did not correlate with the initial abnormal finding on the CT scan that prompted the PET scan. Suggesting that this is likely a inflammatory infectious process since is appears to be involving. There is a waxing waning component. Although malignancy still in differential. Will go ahead and% and a tumor conference to make sure that can provide him a multi disciplinary approach to his decision making. In the meantime will start him on antibiotics and I will follow-up with him after discussion during the tumor conference. 11/26/2022 the patient is here for pulmonary follow-up visit. Continues to have shortness of breath with activity. Specially when going up a flight of stairs. He does use the oxygen continuously. In the office we did every 6 minute walk test. He actually did well lobe air while sitting for a few minutes. Then with minimal activity quickly desaturated down to the low 80s. The patient did require up to 4-5 L to maintain a pulse ox in the low 90s with activity. Therefore is okay for him to increase the oxygen to 5 L specially diffuse going up a flight of stairs or a incline. We can consider a Oxymizer pendant if his oxygen requirement still continue to be high. He is already maximized on his respiratory therapy. In addition to that he did undergo a CT scan of the chest that we personally reviewed in the office. It appears that he has resolution of the airspace disease that he had previously noted. This is all reassuring that it was likely infectious process. He completed the antibiotics and he no longer needs further antibiotic therapy. 05/24/2023 the patient is here for pulmonary follow-up visit. Overall he is feeling well. He is sometimes taken off the oxygen during the daytime and taking a pulse ox of 92% which is reassuring. However at nighttime sometimes oxygen goes up to 99% on his oxygen. I did advise him to decrease the oxygen down to 3 L while sleeping. Will perform an overnight oximetry to make sure that his pulse ox is within normal limits. Patient understands that his pulse ox is too high this can result in central sleep apnea which could worsen his overall respiratory status. As far as his lung cancer history he had a CT scan back in November 2022 which appeared to be stable. Will plan to repeat the CT scan again in November 2023. The patient also continues current respiratory therapy. He is having some issues carrying the oxygen because he is having some contractures of his hands bilaterally. Therefore I will make a referral over to orthopedic surgery. 11/24/2023 the patient is here for a pulmonary follow-up visit. The patient overall has been doing well. He continues with his respiratory therapy. He does have a Trelegy inhaler. Does not use it all the time. He did develop a cough. He recently had upper respiratory illness. He was coughing and has some chest congestion. Seems like today things a little bit better. Still can hear the cough. In the meantime he is having issues with urinary retention he is going to have a procedure done by Urology regarding his bladder and his prostate. I do not believe that the Trelegy is affecting his urinary retention at this time so therefore he can continue specially since he has not taking it regularly. If after the procedures he is still having issues then we can consider removing the long-acting muscarinic antagonist. He continues use the oxygen with good effect. Continues use it with activity and sleep. In addition to that he did undergo a CT scan of the chest in October 2023 which I personally reviewed demonstrating stable postoperative changes and stable nodules. The patient overall is reassured. 06/06/2024 the patient is here for a pulmonary follow-up visit. The patient overall has been doing about the same. He does complaint of increasing dyspnea on exertion going up a flight of stairs going to the bathroom. Typically in the bathroom it is humid and feels like the [place]uce hard to breathe. He has a hard time because the bedrooms are upstairs. The looking to move to a 1 floor apartment but is been hard to locate 1. in the meantime the patient does have underlying wheezing. He does not use the Trelegy inhaler. I do believe that he needs to be on a respiratory regimen in order to improve his symptoms. Therefore, he will start albuterol and budesonide twice a day via the nebulizer. In addition to that he can always increase the oxygen up to 5 L per minute when going up a flight of stairs or exerting himself to a significant amount. Then after that he can come back to his baseline 3 L per minute. He should try to keep his pulse ox with an 88-96%. 12/18/2024 the patient is here for a pulmonary follow-up visit. He is still having hard time with his breathing. Does not do much because of the shortness of breath is so significant. His oxygen came in go down to about the 70s if he is going up a flight of stairs on his oxygen. He is having to increase his oxygen to 5 L with activity. We did go for brief walking oximetry and sure enough he did require 5 L he is also very dyspneic and had to stop and recover. It did take several minutes to get the oxygen above 88% once he drop. The patient denies any significant lower extremity edema. Denies any chest pains or palpitations. States that he did have a cardiology evaluation and they felt that he was doing good her report. On exam he does have significant wheezing. Therefore will increase his nebulized therapy. He does respond well to the budesonide and DuoNeb twice a day. The seems like he needs additional therapies will add additional DuoNebs in between. In addition to that will do a low dose prednisone taper to see if this provide him some relief as well. He may be having some allergies now going into the spring so therefore will add some Singulair in case that is playing a role. Will follow-up in 3 months. He also needs to have a CT scan to follow-up with his previous CT scan specially with his worsening respiratory failure. 03/12/2025 the patient is here for a pulmonary follow-up visit. The patient is still struggling with breathing. He is on 5 L with activity usually just 4 L at rest. He desaturates quickly. He lives in a two-story home and is hard for him to climb the stairs. He did try the nebulized therapy but no significant improvement. He did have a recent CT scan of the chest which I personally reviewed. The patient does have extensive emphysema does have a 9 mm pulmonary nodule in the left lower lobe which appears to be pretty stable. No evidence of any recurrence that I could appreciate on the CAT scan for his cancer standpoint but the patient understands that he does have extensive emphysema. He also has significant mucus production consistent with chronic bronchitis. Will go ahead and start him on Daliresp. He is aware of the side effects. Hopefully can tolerated. In addition to that will keep him on a small dose of prednisone and will try him on some antibiotics as well. All the try to improve his mucus plugging to try helping. He is going to get an EKG and also provide a sputum culture as well. 05/23/2025 the patient is here for pulmonary follow-up visit. Since we last spoke the patient had been admitted twice to [facility]. He was found to have a large aortic aneurysm. He underwent endovascular stenting successfully. Since then he has been actually doing well. His breathing is better. He has been on the oxygen. We did titrate his oxygen down where he was needing 4-5 L and now he does only require 2 L at rest and 2-3 L with activity which is a lot better. Respiratory exam is reassuring. Does complain of shortness of breath though and complains of dizziness. Will go ahead and request blood work. Likely he just recuperating after surgery. Will continue with his current respiratory therapy. Have blood work in follow-up in 3-4 months. If he has any issues prior to this he will call for further recommendations. [facility] Medical History (Updated 12/18/24 @ 21:55 by Trent Evans MD) White syndrome Dilation of aorta Lung mass Squamous cell carcinoma of right lung (~2014) Dysphagia Pulmonary nodules Lymphadenopathy, mediastinal Chronic respiratory failure COPD (chronic obstructive pulmonary disease) Lung cancer (~2014) Surgical History (Updated 12/31/21 @ 10:26 by Paige Singh PA-C) History of thoracotomy (~2014) Social History Patient Tobacco Use Status: Former Tobacco user Tobacco use type: Cigarette Years Smoked: 50yrs Review of Systems Const Reports fatigue, Denies night sweats and Reports weight loss ENT Denies change in voice, Reports dysphagia, Denies lip swelling, Denies mouth pain, Reports nasal congestion, Reports nasal discharge and Denies tongue swelling Card Reports as per HPI, Reports leg edema, Reports dyspnea and Reports dyspnea on exertion Resp Reports cough, Reports dyspnea, Reports dyspnea on exertion and Reports wheezing GI Reports dysphagia Reports as per HPI and Reports urinary frequency Musc Denies no additional complaints, Reports abnormal gait, Reports limited range of motion, Reports muscle weakness and Reports other (hand contractures) Neuro Denies Neuro-related abnormal movements and Reports abnormal gait Psych Denies no additional complaints Endo Reports fatigue Rasta/Lymph Denies easy bleeding and Denies lymphadenopathy Aller/Immun Denies lip swelling, Denies tongue swelling and Reports wheezing Physical Exam Vital Signs: Last Vital Signs Pulse 90 05/23/25 09:59 BP 118/67 05/23/25 09:59 Pulse Ox 98 05/23/25 09:59 Oxygen Delivery Method Nasal Cannula 05/23/25 09:59 Oxygen Flow Rate 5 05/23/25 09:59 BMI result Body Mass Index 22.9 Const General: alert Neck Neck: Yes normal visual inspection, Yes full ROM and Yes no lymphadenopathy Chest Chest palpation & inspection: normal inspection of the chest Resp Effort & Inspection: normal respiratory effort and prolonged expiratory phase Auscultation: diminished lung sounds Cardio Rate: regular rate Rhythm: regular rhythm Heart sounds: S1 normal heart sound present and S2 normal heart sound present GI Palpation (GI): Soft to palpation and nontender Auscultation: normal bowel sounds Skin General skin exam: rashes and/or lesions noted Extrem Right upper extremity: Extremity exam: right hand Office Procedures 6 Minute Walk Time:: 10:20 SPO2 % at rest: 96 Pulse at rest: 48 SPO2 % during excercise: 88 Pulse during excercise: 100 SPO2 % after excercise: 93 Pulse after excercise: 98 Distance in yards walked: 40 Performance Observations:: Patient walked on level ground using a walker for assistance. O2 at rest with 1L of oxygen was 96%. After approx 20 yards O2 sat dropped to 88% and oxygen was increased to 2L. Maintained O2 sat of 91-92 with oxygen at 2L. [id number] - 6 Minute Walk Assessment & Plan Assessment & Plan (1) Chronic respiratory failure: Code(s): J96.10 - Chronic respiratory failure, unspecified whether with hypoxia or hypercapnia Category: Medical Qualifiers: Respiratory failure complication: hypoxia Qualified Code(s): J96.11 - Chronic respiratory failure with hypoxia (2) COPD (chronic obstructive pulmonary disease): Code(s): J44.9 - Chronic obstructive pulmonary disease, unspecified Category: Medical Qualifiers: COPD type: COPD with acute exacerbation Qualified Code(s): J44.1 - Chronic obstructive pulmonary disease with (acute) exacerbation (3) Lung cancer: Onset Date: ~2014 Comment: (Squamous cell carcinoma - s/p RML lobectomy 06/2015) Code(s): C34.90 - Malignant neoplasm of unspecified part of unspecified bronchus or lung Category: Medical Qualifiers: Laterality: unspecified laterality Lung location: unspecified part of lung Qualified Code(s): C34.90 - Malignant neoplasm of unspecified part of unspecified bronchus or lung (4) Pulmonary nodules: Code(s): R91.8 - Other nonspecific abnormal finding of lung field Category: Medical Plan continue Duoneb nebs QID continue Bidesonide nebs BID VIDA as needed Daliresp 500mcg prednisone 10mg Oxygen 2 L at rest and 2-3 L with activity Bloodwork F/U 4 months Orders: Orders Complete Blood Count Auto Diff Today J44.1 - Chronic obstructive pulmonary disease with (acute) exacerbation, J96.11 - Chronic respiratory failure with h ypoxia AMB 6 minute walk Today J44.1 - Chronic obstructive pulmonary disease with (acute) exacerbation Venous Blood Gas Today J44.1 - Chronic obstructive pulmonary disease with (acute) exacerbation, J96.11 - Chronic respiratory failure with hypoxia Basic Metabolic Panel Today J44.1 - Chronic obstructive pulmonary disease with (acute) exacerbation, J96.11 - Chronic respiratory failure with hypoxia IRON PROFILE Today J44.1 - Chronic obstructive pulmonary disease with (acute) exacerbation, J96.11 - Chronic respiratory failure with hypoxia Ferritin Today J44.1 - Chronic obstructive pulmonary disease with (acute) exacerbation, J96.11 - Chronic respiratory failure with hypoxia Coding Level of Care Code Est Pt Level 4 (29409) Complex EM visit Add On G2211 Diagnoses Chronic respiratory failure with hypoxia J96.11 Respiratory failure complication: hypoxia Chronic obstructive pulmonary disease with acute exacerbation J44.1 COPD type: COPD with acute exacerbation Malignant neoplasm of lung, unspecified laterality, unspecified part of lung C34.90 Laterality: unspecified laterality Lung location: unspecified part of lung Pulmonary nodules R91.8 CPT Codes Coding ([id number]) Time Spent (min) 17
[2025-05-23 09:59] VITALS: BP 118/67; PULSE 90; O2SAT 98; BMI 22.9
[2025-05-23 10:41] VITALS: PULSE 48; O2SAT 96
--- OUTSIDE RECORDS SUMMARY | 2025-05-23 11:21 | XMS_ITS | Clinical Summary ---
Author Organization [facility] Address [address] [place] [address] Phone Care Team Providers Care Director Stars Name Role Phone Amber Ramso MD Primary Care Provider [phone] Allergies Active Allergy Reactions Criticality Noted Date Comments Penicillins 04/26/2025 Medications brimonidine (ALPHAGAN) 0.2 % ophthalmic solution Administer 1 drop into both eyes 2 (two) times a day. Active albuterol 2.5 mg /3 mL (0.083 %) nebulizer solution Take 3 mL (2.5 mg total) by nebulization 2 (two) times a day. Active allopurinoL (ZYLOPRIM) 100 mg tablet Take 1 tablet (100 mg total) by mouth 1 (one) time each day. Active Lumigan 0.01 % ophthalmic drops Administer 1 drop into both eyes at bedtime. 5 Active budesonide (PULMICORT) 0.5 mg/2 mL nebulizer solution Take 2 mL (0.5 mg total) by nebulization 2 (two) times a day. 5 Active donepeziL (ARICEPT) 5 mg tablet Take 1 tablet (5 mg total) by mouth 1 (one) time each day. Active dorzolamide (TRUSOPT) 2 % ophthalmic solution Administer 1 drop into both eyes 2 (two) times a day. Active gabapentin (NEURONTIN) 300 mg capsule Take 1 capsule (300 mg total) by mouth 3 (three) times a day. Active ipratropium-alb uteroL (DUONEB) 0.5-2.5 mg/3 mL nebulizer solution Take 3 mL by nebulization 4 (four) times a day. Active lisinopriL (PRINIVIL,ZESTR IL) 10 mg tablet Take 1 tablet (10 mg total) by mouth 1 (one) time each day. 5 Active montelukast (SINGULAIR) 10 mg tablet Take 1 tablet (10 mg total) by mouth at bedtime. at bedtime. 5 Active lovastatin (MEVACOR) 40 mg tablet Take 1 tablet (40 mg total) by mouth 1 (one) time each day. Active predniSONE (DELTASONE) 10 mg tablet Take 1 tablet (10 mg total) by mouth 1 (one) time each day. 5 Active zolpidem (AMBIEN) 10 mg tablet Take 1 tablet (10 mg total) by mouth at bedtime as needed. at bedtime Active roflumilast (DALIRESP) 500 mcg tablet Take 1 tablet (500 mcg total) by mouth 1 (one) time each day. 5 Active Oxygen Therapy via Nasal Cannula (O2) gas Inhale 5 L continuously. 1 Active aspirin 81 mg EC tablet Take 1 tablet (81 mg total) by mouth 1 (one) time each day. 30 each 5 06/03/20 25 Active Active Problems Problem Noted Date Diagnosed Date Abdominal pain 05/08/2025 Community acquired pneumonia, unspecified latera lity 04/26/2025 Hematuria 04/26/2025 AAA (abdominal aortic aneury sm) without rupture ([facility] V24) 04/26/2025 Chronic respiratory failure with hypoxia ([facility] V24, [facility] V28) 01/26/2018 COPD (chronic obstructive pu lmonary disease) ([facility] V24, [facility] V28) 01/26/2018 Pulmonary nodule 01/26/2018 Encounters Date Type Department Care Team Description 05/22/2025 2:00 PM EDT Office Visit Vascular Surgery - [address] [phone] Cesia Gonzalez PA S/P AAA repair (Primary Dx); Abdominal aortic aneurysm (AAA) without rupture, unspecified part ([facility] V24) 05/08/2025 2:11 PM EDT - 05/09/2025 3:24 PM EDT Hospital Encounter [facility] [address] [place] [phone] Anoop Arenas MD Jones, Christopher, MD Alam, Aroosa, MD Right lower quadrant abdominal pain (Primary Dx); Pain of upper abdomen Discharge Disposition: Home or Self Care 05/08/2025 Telephone Vascular Surgery - [facility] [address] [place] [phone] David Spear MD Provider Call Back 05/02/2025 7:35 AM EDT Anesthesia Event [facility] OR [address] [place] [phone] Vicente Gamboa MD Dusza, Sara, CRNA 05/02/2025 7:30 AM EDT - 05/02/2025 10:30 AM EDT Surgery [facility] OR [address] [place] [phone] David Spear MD REPAIR AAA ENDOVASCULAR, RIGHT OPEN FEMORAL EXPOSURE, 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 V24, [facility] V28); AAA (abdominal aortic aneurysm) without rupture ([facility] V24); Chronic obstructive pulmonary disease, unspecified COPD type ([facility] V24, [facility] V28) Discharge Disposition: Home-Health Care [facility] 04/26/2025 Telephone Vascular Surgery [facility] [address] [place] [phone] David Spear MD Referral from Last 3 Months Surgical History Surgery Date Site/Laterality Comments LUNG LOBECTOMY Right middle Medical History Medical History Date Comments Essential (primary) hypertension DX:Essential (primary) hypertension Mixed hyperlipidemia DX:Mixed hy perlipidemia Lung cancer ([facility] V24, [facility] V28) Social History Tobacco Use Types Packs/Day Years Used Date Smoking Tobacco: Former Alcohol Use Standard Drinks/Week Comments Not Currently 0 (1 standard drink = 0.6 oz pur e alcohol) Interpersonal Safety Answer Date Record ed Physical Abuse 05/09/2025 Verbal Abuse 05/09/2025 Sex and Gender Information Value Date Recorded Sex Assigned at Not on file Legal Sex Male 7:30 AM EST Gender Identity Not on file Sexual Orientation Not on file Obstetrics History Last Filed Vital Signs Vital Sign Reading Time Taken Comments Blood Pressure 113/61 05/22/2025 2:06 PM EDT Pulse 85 05/22/2025 2:06 PM EDT Temperature 37 C (98.6 F) 05/09/2025 7:49 AM EDT Respiratory Rate 18 05/09/2025 7:49 AM EDT Oxygen Saturation 100% 05/09/2025 7:49 AM EDT Inhaled Oxygen Concentration - - Weight 75.3 kg (166 lb) 05/22/2025 2:06 PM EDT Height 180.3 cm (5' 11 ) 05/22/2025 2:06 PM EDT Body Mass Index 23.15 05/22/2025 2:06 PM EDT Plan of Treatment Upcoming Encounters Date Type Department Care Team (Late st Contact Info) Description 08/22/2025 2:00 PM EST Office Visit Vascular Surgery - [facility] [address] [facility] [address] [place] [phone] Janice Baig PA 300 [facility] [address] [place] [address] Health Maintenance Due Date Last Done Comments DTaP,Tdap,and Td Vaccines (1 - Tdap) 1954 Pneumococcal Vaccine: 50+ Years (1 of 2 - PCV) 1954 Zoster Vaccines (1 of 2) 1987 RSV Immunization Adult Patients (1 - 1-dose 75+ series) 2012 Cholesterol Screening (Lipid Panel) 09/05/2022 Medicare Annual Wellness Visit 09/05/2022 Social Influencers of Health Screening 09/05/2022 COVID-19 Vaccine ( season) 2024 12/10/2020, 11/14/2020 Depression Screening 10/03/2024 Influenza Vaccine (#1) 2025 , 07/05/2023, 07/08/2022, Additional history exists Falls Risk Assessment 05/09/2026 05/09/2025 Hypertension/CHF/CAD Annual BMP Blood Test 05/09/2026 05/09/2025, 05/08/2025, 05/03/2025, Additional history exists HIB Vaccines Aged Out No longer eligi [...] to complete this topic RSV Immunization Patients Under 20 months Aged Out No longer eligible based on patient's age to complete this topic Varicella Vaccines Aged Out No longer eligible based on patient's age to complete this topic Medical Devices Implanted Type Area Pie Dough Roller Device Identifier Shelf Expiration Date Model / Serial / Lot Sealant Fibrin Vistaseal 4ml - [id number] - [id number] Implanted:Qty: 1 on 05/02/2025 by David Spear MD at [facility] Hemostasis N/A: Aorta [employer] [id number] 08/17/2026 [id number] / [id number] / [id number] Stent Endur Ii Limb [id number] Contralateral Limb - [id number] - [id number] Implanted:Qty: 1 on 05/02/2025 by David Spear MD at [facility] Thoracic AAA Stent Grafts N/A: Aorta [employer] VASCULAR [id number] 11/27/2026 [id number] / [id number] / NA Stent Endur Ii Bif [id number] Bifurcated - [id number] - [id number] Implanted:Qty: 1 on 05/02/2025 by David Spear MD at [facility] Thoracic AAA Stent Grafts N/A: Aorta [employer] VASCULAR 01/09/2026 [id number] / [id number] / NA System Perclose Prostyle Suture Medicated - Sna - [id number] Implanted:Qty: 2 on 05/02/2025 by David Spear MD at [facility] Vascular Closure Devices N/A: Aorta [employer] V[facility] [id number] 07/02/2025 [id number] / [id number] / [id number] Procedures Procedure Name Priority Date/Time Associated Diagnosis Comments ECG 12-LEAD Routine 05/09/2025 7:30 AM EDT CBC WITH AUTO DIFFERENTIAL Routine 05/09/2025 5:20 AM EDT CBC AND DIFFERENTIAL Routine 05/09/2025 5:20 AM EDT BASIC METABOLIC PANEL Routine 05/09/2025 5:20 AM EDT CULTURE BLOOD STAT 05/08/2025 9:40 PM EDT CULTURE BLOOD STAT 05/08/2025 9:30 PM EDT ALEMAN URINE CULTURE TUBE STAT 05/08/2025 8:14 PM EDT URINALYSIS WITH REFLEX MICROSCOPIC AND CULTURE STAT 05/08/2025 8:14 PM EDT URINALYSIS WITH REFLEX MICROSCOPIC AND CULTURE STAT 05/08/2025 8:14 PM EDT CULTURE URINE STAT 05/08/2025 8:[address] ANGIO ABDOMEN PELVIS WO AND/OR W CONTRAST STAT 05/08/2025 5:20 PM EDT Right lower quadrant abdominal pain PROCALCITONIN Add-On 05/08/2025 2:59 PM EDT C-REACTIVE PROTEIN Add-On 05/08/2025 2: 59 PM EDT CBC WITH AUTO DIFFERENTIAL STAT 05/08/2025 2:59 PM EDT LACTATE STAT 05/08/2025 2:59 PM EDT LIPASE STAT 05/08/2025 2:59 PM EDT COMPREHENSIVE METABOLIC PANEL STAT 05/08/2025 2:59 PM EDT CBC AND DIFFERENTIAL STAT 05/08/2025 2:59 PM EDT ECG ANNOTATED 05/04/2025 OXYGEN THERAPY, ADULT Routine 05/03/2025 7:43 AM EDT CBC WITH AUTO DIFFERENTIAL Timed 05/03/2025 5:45 AM EDT BASIC METABOLIC PANEL Timed 05/03/2025 5:45 AM EDT CBC AND DIFFERENTIAL Timed 05/03/2025 5:45 AM EDT POCT ACTIVATED CLOTTING TIME, KAOLIN Routine 05/02/2025 9:47 AM EDT POCT ACTIVATED CLOTTING TIME, KAOLIN Routine 05/02/2025 9:11 AM EDT POCT ACTIVATED CLOTTING TIME, KAOLIN Routine 05/02/2025 9:01 AM EDT POCT ACTIVATED CLOTTING TIME, KAOLIN Routine 05/02/2025 8:49 AM EDT TH AN ARTERIAL LINE (CHARGE) Routine 05/02/2025 7:59 AM EDT TH AN ENDOTRACHEAL(NO CHARGE) Routine 05/02/2025 7:54 AM EDT REPAIR AAA ENDOVASCULAR 05/02/2025 7:35 AM EDT AAA (abdominal aortic aneurysm) without rupture (CMS/HCC V24) Case Notes C-ARM VASC TABLE, POWER INJECTOR, IVUS [employer] Special Needs 04/30 -ASKING 210 MINS PER CASSIE VIA PHONE JT CBC WITH AUTO DIFFERENTIAL Timed 05/02/2025 5:42 AM EDT BASIC METABOLIC PANEL Timed 05/02/2025 5:42 AM EDT CBC AND DIFFERENTIAL Timed 05/02/2025 5:42 AM EDT CBC WITH AUTO DIFFERENTIAL Timed 05/01/2025 5:53 AM EDT BASIC METABOLIC PANEL Timed 05/01/2025 5:53 AM EDT CBC AND DIFFERENTIAL Timed 05/01/2025 5:53 AM EDT TYPE AND SCREEN Routine 04/30/2025 2:24 PM EDT PEP THERAPY Routine 04/30/2025 6:02 AM EDT CBC WITH AUTO DIFFERENTIAL Timed 04/30/2025 5:40 AM EDT BASIC METABOLIC PANEL Timed 04/30/2025 5:40 AM EDT CBC AND DIFFERENTIAL Timed 04/30/2025 5:[address] ANGIO ABDOMEN PELVIS WO AND/OR W CONTRAST STAT 04/29/2025 3:15 PM EDT AAA (abdominal aortic aneurysm) without rupture (CMS/HCC V24) LEGIONELLA ANTIGEN URINE, EIA Routine 04/29/2025 2:50 PM EDT MRSA PCR Routine 04/29/2025 12:51 PM EDT TRANSTHORACIC ECHOCARDIOGRAM (TTE) COMPLETE W/ CONTRAST Routine 04/29/2025 7:51 AM EDT Chronic respiratory failure with hypoxia (CMS/HCC V24, CMS/HCC V28) CBC WITH AUTO DIFFERENTIAL Timed 04/29/2025 3:50 AM EDT BASIC METABOLIC PANEL Timed 04/29/2025 3:50 AM EDT CBC AND DIFFERENTIAL Timed 04/29/2025 3:50 AM EDT VANCOMYCIN, TROUGH Timed 04/29/2025 3: 50 AM EDT CBC WITH AUTO DIFFERENTIAL Timed 04/28/2025 8:26 AM EDT BASIC METABOLIC PANEL Timed 04/28/2025 8:26 AM EDT CBC AND DIFFERENTIAL Timed 04/28/2025 8:26 AM EDT PEP THERAPY Routine 04/28/2025 6:00 AM EDT US RETROPERITONEAL COMPLETE Routine 04/27/2025 4:46 PM EDT AAA (abdominal aortic aneurysm) without rupture (CMS/HCC V24) CULTURE BLOOD Routine 04/27/2025 3:31 PM EDT CULTURE BLOOD Routine 04/27/2025 3:27 PM EDT ECG 12-LEAD Routine 04/27/2025 10:53 AM EDT PEP THERAPY Routine 04/27/2025 6:00 AM EDT CBC WITH AUTO DIFFERENTIAL Routine 04/27/2025 5:51 AM EDT CBC AND DIFFERENTIAL Routine 04/27/2025 5:51 AM EDT BASIC METABOLIC PANEL Routine 04/27/2025 5:51 AM EDT RESPIRATORY VIRUS PANEL MOLECULAR STUDY Routine 04/26/2025 9:52 PM EDT PEP THERAPY Routine 04/26/2025 9:06 PM EDT PEP THERAPY Routine 04/26/2025 9:06 PM EDT CULTURE BLOOD STAT 04/26/2025 7:34 PM EDT BLOOD CULTURE PATHOGENS MOLECULAR STUDY 2 Routine 04/26/2025 7:14 PM EDT CULTURE BLOOD STAT 04/26/2025 7:14 PM EDT B-TYPE NATRIURETIC PEPTIDE STAT 04/26/2025 7:01 PM EDT TROPONIN I HIGH SENSITIVITY STAT 04/26/2025 7:01 PM EDT LACTATE, WITH REFLEX STAT 04/26/2025 7:01 PM EDT XR CHEST 1 VIEW STAT 04/26/2025 5:50 PM EDT ECG 12-LEAD STAT 04/26/2025 5:45 PM EDT PROCALCITONIN Add-On 04/26/2025 5:32 PM EDT HEPATIC FUNCTION PANEL Add-On 5:32 PM EDT MAGNESIUM Add-On 04/26/2025 5:32 PM EDT LIPASE STAT Add-on 04/26/2025 5:32 PM EDT CBC WITH AUTO DIFFERENTIAL STAT 04/26/2025 5:32 PM EDT BASIC METABOLIC PANEL STAT 04/26/2025 5:32 PM EDT CBC AND DIFFERENTIAL STAT 04/26/2025 5:32 PM EDT AL CRITICAL CARE 30-74 MINUTES Routine 04/26/2025 5:17 PM EDT from Last 3 Months Results * ECG 12 lead (05/09/2025 7:30 AM EDT) Only the most recent of3 resultswithin the time period is included. Ventricular Rate ECG 82 BPM GEMUSE Atrial Rate 82 BPM GEMUSE P-R Interval 170 ms GEMUSE QRS Duration 94 ms GEMUSE Q-T Interval 386 ms GEMUSE QTc 450 ms GEMUSE P Wave Mesa -16 degrees GEMUSE R Mesa -38 degrees GEMUSE T Mesa 85 degrees GEMUSE ECG Interpretation Sinus rhythm with Premature atrial complexes Left axis deviation Nonspecific ST and T wave abnormality Abnormal ECG When compared with ECG of 27-APR-2025 10:53, Premature ventricular complexes are no longer Present Premature atrial complexes are now Present Confirmed by Jocelynn HERNANDEZ JOHN ([id number]) on 05/09/2025 4:47:53 PM GEMUSE 05/09/2025 7:30 AM EDT 05/09/2025 4:47 PM EDT us Michael Terrazas MD ECG ORDERABLES Final Resul t GEMUSE * (ABNORMAL) CBC auto differential (05/09/2025 5:20 AM EDT) Only the most recent of10 resultswithin the time period is included. Pathologist [facility] WBC 9.8 4.8 - 10.8 K/mcL LAB HEMETOLOGY METHOD 05/09/2025 6:41 AM EDT [facility] RBC 4.60 4.50 - 5.50 M/mcL LAB HEMETOLOGY METHOD 05/09/2025 6:41 AM EDT [facility] Hemoglobin 13.0(L) 13.5 - 17.5 g/dL LAB HEMETOLOGY METHOD 05/09/2025 6:41 AM [facility] Hematocrit 42.7 42.0 - 54.0 % LAB HEMETOLOGY METHOD 05/09/2025 6:41 AM [facility] MCV 92.0 79.0 - 98.0 FL LAB HEMETOLOGY METHOD 05/09/2025 6:41 AM [facility] MCH 28.0 27.0 - 32.0 pcg LAB HEMETOLOGY METHOD 05/09/2025 6:41 AM [facility] MCHC 30.4(L) 32.0 - 37.0 g/dL LAB HEMETOLOGY METHOD 05/09/2025 6:41 AM [facility] RDW 13.4 11.0 - 15.0 % LAB HEMETOLOGY METHOD 05/09/2025 6:41 AM [facility] Platelets 238 130 - 400 K/mcL LAB HEMETOLOGY METHOD 05/09/2025 6:41 AM [facility] MPV 11.1(H) 7.0 - 11.0 FL LAB HEMETOLOGY METHOD 05/09/2025 6:41 AM [facility] NRBC 0.0 <1.0 % LAB HEMETOLOGY METHOD 05/09/2025 6:41 AM [facility] NRBC Absolute 0.00 <0.10 K/mcL LAB HEMETOLOGY METHOD 05/09/2025 6:41 AM [facility] Neutrophils Relative 80.7 % LAB HEMETOLOGY METHOD 05/09/2025 6:41 AM [facility] Lymphocytes Relative 6.9 % LAB HEMETOLOGY METHOD 05/09/2025 6:41 AM [facility] Monocytes Relative 9.5 % LAB HEMETOLOGY METHOD 05/09/2025 6:41 AM [facility] Eosinophils Relative 1.8 % LAB HEMETOLOGY METHOD 05/09/2025 6:41 AM EDT [facility] Basophils Relative 0.5 % LAB HEMETOLOGY METHOD 05/09/2025 6:41 AM EDT [facility] Immature Granulocytes Relative 0.6 % LAB HEMETOLOGY METHOD 05/09/2025 6:41 AM EDT [facility] Neutrophils Absolute 7.92(H) 1.50 - 7.00 K/mcL LAB HEMETOLOGY METHOD 05/09/2025 6:41 AM EDT [facility] Lymphocytes Absolute 0.68(L) 1.00 - 5.00 K/mcL LAB HEMETOLOGY METHOD 05/09/2025 6:41 AM EDT [facility] Monocytes Absolute 0.93 0.20 - 1.00 K/mcL LAB HEMETOLOGY METHOD 05/09/2025 6:41 AM EDT [facility] Eosinophils Absolute 0.18 0.00 - 0.50 K/mcL LAB HEMETOLOGY METHOD 05/09/2025 6:41 AM EDT [facility] Basophils Absolute 0.05 0.00 - 0.20 K/mcL LAB HEMETOLOGY METHOD 05/09/2025 6:41 AM EDT [facility] Immature Granulocytes Absolute 0.06(H) 0.00 - 0.03 K/mcL LAB HEMETOLOGY METHOD 05/09/2025 6:41 AM EDT [facility] Blood Venous blood specimen / Unknown Venipuncture / Unknown 05/09/2025 5:20 AM EDT 05/09/2025 6:26 AM EDT us Michael Terrazas MD LAB BLOOD ORDERABLES Final Result [facility] [address] [place] [address], * (ABNORMAL) Basic metabolic panel (05/09/2025 5:20 AM EDT) Only the most recent of9 resultswithin the time period is included. Sodium 141 133 - 145 mmol/L LAB CHEMISTRY METHOD 05/09/2025 6:53 AM [facility] Potassium 4.8 3.5 - 5.5 mmol/L LAB CHEMISTRY METHOD 05/09/2025 6:53 AM [facility] Chloride 106 96 - 110 mmol/L LAB CHEMISTRY METHOD 05/09/2025 6:53 AM [facility] CO2 32 21 - 32 mmol/L LAB CHEMISTRY METHOD 05/09/2025 6:53 AM [facility] Anion Gap 3 3 - 11 LAB CHEMISTRY METHOD 05/09/2025 6:53 AM [facility] Glucose 80 70 - 100 mg/dL LAB CHEMISTRY METHOD 05/09/2025 6:53 AM [facility] BUN 38(H) 5 - 25 mg/dL LAB CHEMISTRY METHOD 05/09/2025 6:53 AM [facility] Creatinine 0.90 0.70 - 1.30 mg/dL LAB CHEMISTRY METHOD 05/09/2025 6:53 AM [facility] eGFR 83 >=60 mL/min/1. 73m2 LAB CHEMISTRY METHOD 05/09/2025 6:53 AM [facility] Comment:Calculation based on the Chronic Kidney Disease Epidemiology Collaboration (CKD-EPI) equation refit without adjustment for race. BUN/Creatinine Ratio 42.2 LAB CHEMISTRY METHOD 05/09/2025 6:53 AM [facility] Calcium 10.2 8.5 - 10.5 mg/dL LAB CHEMISTRY METHOD 05/09/2025 6:53 AM [facility] Blood Venous blood specimen / Unknown Venipuncture / Unknown 05/09/2025 5:20 AM EDT 05/09/2025 6:25 AM EDT us Michael Terrazas MD LAB BLOOD ORDERABLES Final Result Performing Organization Address [facility] Co de Phone Number [facility] [address] [place] [address], [place] [phone] * Blood Culture, Peripheral Draw #1 (05/08/2025 9:40 PM EDT) Only the most recent of6 resultswithin the time period is included. [facility] Culture, Blood No growth at 5 days 05/13/2025 10:02 PM EDT [facility] Blood Venous blood specimen / Unknown Venipuncture / Unknown 05/08/2025 9:40 PM EDT 05/08/2025 9:46 PM EDT us Michael Terrazas MD LAB MICROBIOLOGY - GENERAL ORDERABLES Final Result Performing Organization Address [facility] de Phone Number [facility] [address] [place] [address], [place] [phone] * (ABNORMAL) Urinalysis with reflex microscopic and culture (05/08/2025 8:14 PM EDT) [facility] Specific [place] Urine >1.045(H) 1.003 - 1.030 LAB URINALYSIS - AUTOMATED METHOD 05/08/2025 10:41 PM EDT [facility] pH, Urine 6.0 5.0 - 8.0 pH LAB URINALYSIS - AUTOMATED METHOD 05/08/2025 10:41 PM EDT [facility] Leukocytes, Urine Small(A) Negative LAB URINALYSIS - AUTOMATED METHOD 05/08/2025 10:41 PM EDT [facility] Nitrite, Urine Negative Negative LAB URINALYSIS - AUTOMATED METHOD 05/08/2025 10:41 PM EDT [facility] Protein, Urine Trace <=Trace mg/dL LAB URINALYSIS - AUTOMATED METHOD 05/08/2025 10:41 PM [facility] Glucose, Urine Negative Negative mg/dL LAB URINALYSIS - AUTOMATED METHOD 05/08/2025 10:41 PM [facility] Ketones, Urine 40(A) Negative mg/dL LAB URINALYSIS - AUTOMATED METHOD 05/08/2025 10:41 PM [facility] Urobilinogen , Urine 0.2 0.2 - 1.0 mg/dL LAB URINALYSIS - AUTOMATED METHOD 05/08/2025 10:41 PM [facility] Bilirubin, Urine Negative Negative LAB URINALYSIS - AUTOMATED METHOD 05/08/2025 10:41 PM [facility] Blood, Urine Negative Negative LAB URINALYSIS - AUTOMATED METHOD 05/08/2025 10:41 PM [facility] RBC, Urine 5.7(H) 0 - 4 /HPF LAB URINALYSIS - AUTOMATED METHOD 05/08/2025 10:41 PM [facility] WBC, Urine 23.7(H) 0 - 4 /HPF LAB URINALYSIS - AUTOMATED METHOD 05/08/2025 10:41 PM [facility] Squamous Epithelial, Urine 75(H) 0 - 60 /LPF LAB URINALYSIS - AUTOMATED METHOD 05/08/2025 10:41 PM [facility] Bacteria, Urine Negative Negative /HPF LAB URINALYSIS - AUTOMATED METHOD 05/08/2025 10:41 PM [facility] Hyaline Casts, Urine 0.8 0 - 3 /LPF LAB URINALYSIS - AUTOMATED METHOD 05/08/2025 10:41 PM [facility] Urine Urine specimen obtained by clean catch procedure / Unknown Non-blood Collection / Unknown 05/08/2025 8:14 PM EDT 05/08/2025 10:34 PM EDT us Anoop Arenas MD LAB URINE ORDERABLES Final Res ult Performing Organization Address City/[facility]/ZIP Co de Phone Number [facility] [address] [place] [address], [place] [phone] * Aleman urine culture tube (05/08/2025 8:14 PM EDT) Extra Tube Hold for add-ons. 05/09/2025 12:01 AM EDT [facility] Comment:Auto resulted. Urine Urine specimen obtained by clean catch procedure / Unknown Non-blood Collection / Unknown 05/08/2025 8:14 PM EDT 05/08/2025 10:34 PM EDT Anoop Arenas MD LAB URINE ORDERABLES Final Res ult Performing Organization Address [facility] Co de Phone Number [facility] [address] [place] [address], [place] [phone] * Culture urine (05/08/2025 8:14 PM EDT) Culture, Urine <10,000 cfu/ml, insignificant count, no further workup. 05/10/2025 11:59 AM EDT [facility] Urine Urine specimen obtained by clean catch procedure / Unknown Non-blood Collection / Unknown 05/08/2025 8:14 PM EDT 05/08/2025 10:41 PM EDT Anoop Arenas MD LAB MICROBIOLOGY - GENERAL ORD ERABLES Final Result Performing Organization Address [facility]/ZIP Co de Phone Number [facility] [address] [place] [address], [place] [phone] * CT Angio Abdomen Pelvis wo and/or w Contrast (05/08/2025 5:20 PM EDT) Only the most recent of2 resultswithin the time period is included. Anatomical Region Laterality Modality Body Computed Tomogra phy 05/08/2025 5:55 PM EDT Impressions 05/08/2025 5:55 PM EDT Impression: 1. Recent appearing aorto bi-iliac endograft hardware placement. Trace gas density within the excluded aneurysm sac is likely expected sequela of recent procedure (presumably less than 10 days). However, less likely possibility of aortitis or infection not excluded, consider correlation with infectious symptomatology. No other evidence of complication or endoleak. 2. Mild perivesical stranding could suggest cystitis, consider correlation with urinalysis. This document has been electronically signed by: Nilay Keane MD on 05/08/2025 17:55:18 Narrative 05/08/2025 5:55 PM EDT INDICATION: AAA, post-op Exam: Contrast-enhanced CTA abdomen and pelvis with multiplanar reformats. Comparison: None. Findings: Vascular: Proximal abdominal aorta measures 2.8 cm transverse dimension at celiac artery origin. There is aorto bi-iliac endograft hardware in place, excluding an infrarenal abdominal aortic aneurysm sac which measures up to 5.5 cm maximal cross-sectional dimension (measured on 4; 347). No evidence of endoleak or complication. Punctate foci of gas density within the excluded aneurysm sac (for example, 3; 85), likely sequela of recent endograft placement. However, consider correlation with infectious symptomatology. Graft limbs appear patent. Celiac artery, superior mesenteric artery, bilateral renal arteries are patent. Inferior mesenteric artery appears faintly opacified, likely in the retrograde fashion. Beyond the endograft hardware, common and external iliac arteries are patent. Internal iliac arteries are within normal limits caliber and patent. Liver is free of focal lesions and ductal dilatation. Gallbladder is unremarkable. Spleen is unremarkable. Pancreas and adrenal glands appear unremarkable. Kidneys reveal a right renal lower pole cyst measuring up to 3.2 cm (5; 84, 19 Hounsfield units). Additional small bilateral renal cysts and subcentimeter hypodensities are present. Kidneys otherwise unremarkable. No free intraperitoneal fluid or retroperitoneal masses or adenopathy. Bowel loops reveal no abnormal wall thickening or distention. Colonic diverticulosis is present, without CT evidence of diverticulitis. The appendix is unremarkable. CT pelvis: Prostate gland measures 5.7 cm transverse dimension. Urinary bladder reveals mild perivesical stranding, suggesting cystitis, consider correlation with urinalysis. No pelvic masses, fluid or adenopathy. Mild right inguinal stranding appears to be sequela of recent procedure or intervention. There is lesser left inguinal stranding. Bilateral inguinal skin jose de jesus are present. Osseous structures reveal no destructive osseous lesions. Procedure Note Nilay Keane MD - 05/08/2025 INDICATION: AAA, post-op Exam: Contrast-enhanced CTA abdomen and pelvis with multiplanarreformats. Comparison: None. Findings: Vascular: Proximal abdominal aorta measures 2.8 cm transverse dimensionat celiac artery origin. There is aorto bi-iliac endograft hardware inplace, excluding an infrarenal abdominal aortic aneurysm sac which measures upto 5.5 cm maximal cross-sectional dimension (measured on 4; 347). Noevidence of endoleak or complication. Punctate foci of gas density within the excluded aneurysm sac (for example, 3; 85), likely sequela of recent endograft placement. However, consider correlation with infectious symptomatology. Graft limbs appear patent. Celiac artery, superior mesenteric artery, bilateral renal arteries are patent. Inferior mesenteric artery appears faintly opacified, likely in the retrograde fashion. Beyond the endograft hardware, common and external iliacarteries are patent. Internal iliac arteries are within normal limits caliber and patent. Liver is free of focal lesions and ductal dilatation. Gallbladder is unremarkable. Spleen is unremarkable. Pancreas and adrenal glands appear unremarkable. Kidneys reveal a right renal lower pole cyst measuring up to 3.2 cm (5; 84, 19 Hounsfield units). Additional small bilateral renal cysts and subcentimeter hypodensities are present. Kidneys otherwise unremarkable. No free intraperitoneal fluid or retroperitoneal masses or adenopathy. Bowel loops reveal no abnormal wall thickening or distention. Colonic diverticulosis is present, without CT evidence of diverticulitis. The appendix is unremarkable. CT pelvis: Prostate gland measures 5.7 cm transverse dimension. Urinary bladder reveals mild perivesical stranding, suggesting cystitis,consider correlation with urinalysis. No pelvic masses, fluid or adenopathy. Mild right inguinal stranding appears to be sequela of recent procedure or intervention. There is lesser left inguinal stranding. Bilateralinguinal skin jose de jesus are present. Osseous structures reveal no destructive osseous lesions. IMPRESSION: Impression: 1. Recent appearing aorto bi-iliac endograft hardware placement. Tracegas density within the excluded aneurysm sac is likely expected sequela of recent procedure (presumably less than 10 days). However, less likely possibility of aortitis or infection not excluded, consider correlation with infectious symptomatology. No other evidence of complication or endoleak. 2. Mild perivesical stranding could suggest cystitis, considercorrelation with urinalysis. This document has been electronically signed by: Nilay Keane MD on 05/08/2025 17:55:18 Cassie Loredo NP IMG CT PROCEDURES Final Result * Procalcitonin (05/08/2025 2:59 PM EDT) Only the most recent of2 resultswithin the time period is included. Procalcitonin 0.06 <=0.16 ng/mL LAB CHEMISTRY METHOD 05/09/2025 7:55 AM EDT [facility] Blood Venous blood specimen / Unknown Venipuncture / Unknown 05/08/2025 2:59 PM EDT 05/08/2025 3:16 PM EDT Narrative [facility] - 05/09/2025 7:55 AM EDT Procalcitonin > 2.00 ng/ml: Procalcitonin Levels above 2.00 ng/ml, on the first day of ICU admission represent a high risk for progression to severe sepsis and/or septic shock. Procalcitonin < 0.50 ng/ml: Procalcitonin levels below 0.50 ng/ml on the first day of ICU admission represent a low risk for progression to severe sepsis and/or septic shock. Concentrations <0.5 ng/mL do not exclude an infection, on account of local ized infections (without systemic signs) which can be associated with such low concentrations, or a systemic infection in its initial stages (<6 hours). Furthermore, increased procalcitonin can occur without infection. PCT concentrations between 0.5 and 2.0 ng/mL should be interpreted taking into account the patient's history. It is recommended to retest PCT within 6-24 hours if any concentrations <2.0 ng/mL are obtained. Michael Terrazas MD LAB BLOOD ORDERABLES Final Result Performing Organization Address [facility]/ZIP Co de Phone Number [facility] [address] [place] [address], * (ABNORMAL) C-reactive protein (05/08/2025 2:59 PM EDT) Pathologist [facility] C-Reactive Protein 6.18(H) <=0.50 mg/dL LAB CHEMISTRY METHOD 05/08/2025 9:19 PM EDT [facility] Blood Venous blood specimen / Unknown Venipuncture / Unknown 05/08/2025 2:59 PM EDT 05/08/2025 3:16 PM EDT Michael Terrazas MD LAB BLOOD ORDERABLES Final Result Performing Organization Address [facility] Co de Phone Number [facility] [address] [place] [address], * Lipase (05/08/2025 2:59 PM EDT) Only the most recent of2 resultswithin the time period is included. [facility] Lipase 47 13 - 75 unit/L LAB CHEMISTRY METHOD 05/08/2025 4:04 PM EDT [facility] Blood Venous blood specimen / Unknown Venipuncture / Unknown 05/08/2025 2:59 PM EDT 05/08/2025 3:16 PM EDT Jackie Hancock MD LAB BLOOD ORDERABLES Final Resul t Performing Organization Address [facility]/ZIP Co de Phone Number [facility] [address] [place] [address], * Lactate (05/08/2025 2:59 PM EDT) Pathologist [facility] Lactate 1.2 0.4 - 2.0 mmol/L LAB CHEMISTRY METHOD 05/08/2025 3:49 PM EDT [facility] Blood Venous blood specimen / Unknown Venipuncture / Unknown 05/08/2025 2:59 PM EDT 05/08/2025 3:17 PM EDT us Jackie Hancock MD LAB BLOOD ORDERABLES Final Resul t [facility] [address] [place] [address], [place] [phone] * (ABNORMAL) Comprehensive metabolic panel (05/08/2025 2:59 PM EDT) Sodium 139 133 - 145 mmol/L LAB CHEMISTRY METHOD 05/08/2025 4:04 PM [facility] Potassium 4.4 3.5 - 5.5 mmol/L LAB CHEMISTRY METHOD 05/08/2025 4:04 PM [facility] Comment:Hemolysis present Chloride 105 96 - 110 mmol/L LAB CHEMISTRY METHOD 05/08/2025 4:04 PM [facility] CO2 29 21 - 32 mmol/L LAB CHEMISTRY METHOD 05/08/2025 4:04 PM [facility] Anion Gap 5 3 - 11 LAB CHEMISTRY METHOD 05/08/2025 4:04 PM [facility] Glucose 96 70 - 100 mg/dL LAB CHEMISTRY METHOD 05/08/2025 4:04 PM [facility] BUN 41(H) 5 - 25 mg/dL LAB CHEMISTRY METHOD 05/08/2025 4:04 PM [facility] Creatinine 0.94 0.70 - 1.30 mg/dL LAB CHEMISTRY METHOD 05/08/2025 4:04 PM [facility] eGFR 78 >=60 mL/min/1. 73m2 LAB CHEMISTRY METHOD 05/08/2025 4:04 PM [facility] Comment:Calculation based on the Chronic Kidney Disease Epidemiology Collaboration (CKD-EPI) equation refit without adjustment for race. BUN/Creatinine Ratio 43.6 LAB CHEMISTRY METHOD 05/08/2025 4:04 PM EDT [facility] Calcium 10.7(H) 8.5 - 10.5 mg/dL LAB CHEMISTRY METHOD 05/08/2025 4:04 PM [facility] AST (SGOT) 16 10 - 42 unit/L LAB CHEMISTRY METHOD 05/08/2025 4:04 PM [facility] Comment:Hemolysis present ALT (SGPT) 23 10 - 60 unit/L LAB CHEMISTRY METHOD 05/08/2025 4:04 PM [facility] Alkaline Phosphatase 67 42 - 121 unit/L LAB CHEMISTRY METHOD 05/08/2025 4:04 PM [facility] Total Protein 5.8(L) 6.0 - 8.0 g/dL LAB CHEMISTRY METHOD 05/08/2025 4:04 PM [facility] Albumin 2.9(L) 3.2 - 5.0 g/dL LAB CHEMISTRY METHOD 05/08/2025 4:04 PM [facility] Total Bilirubin 0.6 0.0 - 1.4 mg/dL LAB CHEMISTRY METHOD 05/08/2025 4:04 PM [facility] Blood Venous blood specimen / Unknown Venipuncture / Unknown 05/08/2025 2:59 PM EDT 05/08/2025 3:16 PM EDT us Jackie Hancock MD LAB BLOOD ORDERABLES Final Resul t [facility] [address] [place] [address], * ECG-Annotated (05/04/2025) us Provider Onbase ECG ORDERABLES Final Result * POCT activated clotting timebrice (05/02/2025 9:47 AM EDT) Only the most recent of4 resultswithin the time period is included. Activated Clotting Time Gusolin 130 74 - 137 sec 05/02/2025 3:14 PM EDT [facility] Blood Arterial blood specimen / Unknown 05/02/2025 9:47 AM EDT 05/02/2025 3:15 PM EDT Jeevan Loo MD LAB POINT OF CARE TE ST DOCKED DEVICE UNSOLICITED RESULTS Final Result [facility] [address] [place] [address], [place] [phone] * TH AN ARTERIAL LINE (CHARGE) (05/02/2025 7:59 AM EDT) Narrative Lucila Castillo CRNA - 05/02/2025 7:59 AM EDT Lucila Castillo CRNA 05/02/2025 8:00 AM Arterial Line Performed by: Lucila Castillo CRNA Authorized by: Vicente Gamboa MD Consent: Verbal consent obtained. Risks and benefits: risks, benefits and alternatives were discussed Consent given by: patient Patient understanding: patient states understanding of the procedure being performed Patient consent: the patient's understanding of the procedure matches consent given Procedure consent: procedure consent matches procedure scheduled Relevant documents: relevant documents present and verified Test results: test results available and properly labeled Required items: required blood products, implants, devices, and special equipment available Patient identity confirmed: verbally with patient, arm band and hospital-assigned identification number Time out: Immediately prior to procedure a time out was called to verify the correct patient, procedure, equipment, customer support agent and site/side marked as required. Preparation: Patient was prepped and draped in the usual sterile fashion. Indications: multiple ABGs and hemodynamic monitoring Location: right radial Sedation: Patient sedated: yes (Post GA induction) Needle gauge: 20 Seldinger technique: Seldinger technique used Number of attempts: 1 Post-procedure: dressing applied Post-procedure CMS: normal Patient tolerance: patient tolerated the procedure well with no immediate complications Start Time: 05/02/2025 7:45 AMStop Time: 05/02/2025 7:50 AM Staffing Anesthesiologist: Vicente Gamboa MD Vicente Gamboa MD ANESTHESIA ORDERABLES Final Re sult * TH AN ENDOTRACHEAL(NO CHARGE) (05/02/2025 7:54 AM EDT) Lucila Ferreira CRNA - 05/02/2025 7:54 AM EDT Lucila Castillo CRNA 05/02/2025 7:56 AM General Information and Staff Patient location during procedure: OR Performed by: Lucila Castillo CRNA Authorized by: Vicente Gamboa MD Intubation Additional Comments Smooth induction, easy mask w/ 100 mm OPA, Grade I view; size 7.5 ETT placed, verified & secured, VSS. Airway not difficult Urgency: elective Final Airway Details Successful airway: ETT Cuffed: yes Successful intubation technique: direct laryngoscopy Facilitating devices/methods: intubating stylet Endotracheal tube insertion site: oral Blade: Deon Blade size: #3 ETT size (mm): 7.5 Cormack-Lehane Classification: grade I - full view of glottis Placement verified by: chest auscultation and capnometry Measured from: gums ETT to gums (cm): 23 Number of attempts at approach: 1 Number of other approaches attempted: 0Final airway type: endotracheal airway Indications and Patient Condition Indications for airway management: anesthesia Spontaneous Ventilation: absent (Post GA induction) Sedation level: Yes Preoxygenated: yes Soft Tissue Damage: No Dentition Unchanged: Yes (Edentulous) Patient position: sniffing MILS maintained throughout Mask difficulty assessment: 2 - vent by mask + OA or adjuvant +/- NMBA us Vicente Gamboa MD ANESTHESIA ORDERABLES Final Re sult * Type and screen (04/30/2025 2:24 PM EDT) ABO Group A 04/30/2025 4:28 PM EDT [facility] Rh Type Positive 04/30/2025 4:28 PM EDT [facility] Antibody Screen Negative 04/30/2025 4:28 PM EDT [facility] Blood Venous blood specimen / Unknown Venipuncture / Unknown 04/30/2025 2:24 PM EDT 04/30/2025 2:50 PM EDT Cassie WILLIAMSON LAB BLOOD BANK TEST ORDERABLES Final Result Performing Organization Address [facility]/ZIP Co de Phone Number [facility] [address] [place] [address], * Legionella antigen urine, EIA (04/29/2025 2:50 PM EDT) Pathologist [facility] Legionella Antigen, Ur Negative Negative 04/29/2025 3:59 PM EDT [facility] Urine Urine specimen obtained by clean catch procedure / Unknown Non-blood Collection / Unknown 04/29/2025 2:50 PM EDT 04/29/2025 3:19 PM EDT Narrative [facility] - 04/29/2025 3:59 PM EDT Negative for Legionella pneumophilia serogroup 1 antigen. This presumptive result suggests no current or recent infection due to L. pneumophilia serogroup 1. Culture is recommended if Legionella infection is till suspected, as other serogroups and species of Legionella are not detected by this test. Aury Munoz MD LAB URINE ORDERABLES Final Resul t Performing Organization Address City/[facility]/ZIP Co de Phone Number [facility] [address] [place] [address], * MRSA molecular study (04/29/2025 12:51 PM EDT) [facility] MRSA Screen PCR Not Detected Not Detected LAB MICROBIOLOGY METHOD 04/29/2025 3:16 PM EDT [facility] Swab Nasopharyngeal structure / Unknown Non-blood Collection / Unknown 04/29/2025 12:51 PM EDT 04/29/2025 1:05 PM EDT Jeevan Loo MD LAB MICROBIOLOGY - GENERAL ORDER DEBBIE Final Result [facility] [address] [place] [address], [place] [phone] * (ABNORMAL) TRANSTHORACIC ECHOCARDIOGRAM (TTE) COMPLETE W/ CONTRAST (04/29/2025 7:51 AM EDT) Left Atrium [place] 6.4 cm CV PACS Left Atrium [place] 6.6 cm CV PACS LA Area Sys (A2C) 28 cm2 CV PACS LA Area Sys (A4C) 23 cm2 CV PACS LA Volume (BP) 81 mL CV PACS Aortic Sinus Valsalva 3.8 cm CV PACS Ascending Aorta 3.9 cm CV PACS IVSD 0.9 0.6 - 1.0 cm CV PACS LVIDD 5.7 4.2 - 5.8 cm CV PACS LVIDS 3.8 2.5 - 4.0 cm CV PACS LVOT Diameter 2.0 cm CV PACS LVPWD 1.0 0.6 - 1.0 cm CV PACS LVOT Area 3.2 cm2 CV PACS RV S' 15 cm/s CV PACS TAPSE 19 mm CV PACS TR Peak Velocity 3.00 m/s CV PACS TR Peak Gradient 35 mmHg CV PACS Relative Wall Thickness ratio 0.35 0.24 - 0.42 CV PACS FS 33 % CV PACS LV Mass 2D 212(A) 96 - 200 g CV PACS Ascending Aorta Index 1.97 cm/m2 CV PACS LVIDD Index 2.88 cm/m2 CV PACS LVIDS Index 1.92 cm/m2 CV PACS LA Volume Index (BP) 41 mL/m2 CV PACS LV Mass Index 2D 107 50 - 102 g/m2 CV PACS BSA 1.98 m2 CV PACS Right Ventricular Peak Systolic Pressure 39 mmHg CV PACS Est. RA Pressure 3 mmHg CV PACS MV Peak A Lio 1.00 m/s CV PACS MV Peak E Lio 0.80 m/s CV PACS E/A Ratio 0.8 0.8 - 2.0 CV PACS RV Free Wall Peak S' 15 cm/s CV PACS Anatomical Region Laterality Modality Ultrasound Narrative 04/29/2025 12:36 PM EDT Left ventricle cavity size is normal. Left ventricle wall thickness is normal. No regional LV wall motion abnormalities noted.Left ventricular systolic function is in the normal range with an ejection fraction of 55-60%. Right ventricle cavity is normal. Right ventricular systolic function is normal. There is no hemodynamically significant valve disease. Mild valvular abnormalities as below. There is borderline pulmonary hypertension with RV systolic pressure 39 mmHg. The ascending aorta is minimally dilated (3.9 cm) for age and body surface area. Left atrium cavity is mildly dilated. Left Ventricle Left ventricle cavity size is normal. Wall thickness is normal. Systolic function is normal with an ejection fraction of 55-60%. There are no regional LV wall motion abnormalities. Indeterminate diastolic function. Right Ventricle Right ventricle cavity appears normal. Systolic function is normal. Left Atrium Left atrium cavity is mildly dilated. Right Atrium Right atrium cavity is normal. IVC/SVC Inferior vena cava structure is normal. RA pressures is estimated to be 3 mmHg (IVC diameter <21 mm and decreases >50% during inspiration). Mitral Valve The leaflets are mildly thickened. There is mild annular calcification. There is mild regurgitation. There is no evidence of mitral valve stenosis. Tricuspid Valve The leaflets exhibit normal excursion. There is trace regurgitation. There is no evidence of tricuspid valve stenosis. Estimated RA pressure is 3 mmHg. The RVSP is estimated at 39 mmHg. Aortic Valve The aortic valve is trileaflet. The leaflets exhibit normal excursion. There is no regurgitation or stenosis. Pulmonic Valve Visualized portions of the pulmonic valve appear normal. There is no regurgitation or stenosis. Ascending Aorta The ascending aorta is minimally dilated (3.9 cm) for age and body surface area. The aortic root is likely upper normal in size for age and body surface area. Pericardium There is an anterior fat pad. There is no pericardial effusion. Study Details Overall the study quality was technically difficult. Definity contrast was given to enhance imaging. us Jeevan Loo MD CV ECHO PROCEDURES Final Result * Vancomycin, trough Please draw prior to 5am dose (04/29/2025 3:50 AM EDT) Vancomycin Trough 13.9 10.0 - 20.0 mcg/mL LAB CHEMISTRY METHOD 04/29/2025 4:43 AM EDT [facility] Blood Venous blood specimen / Unknown Venipuncture / Unknown 04/29/2025 3:50 AM EDT 04/29/2025 4:14 AM EDT us Jeevan Loo MD LAB BLOOD ORDERABLES Final Resul t [facility] [address] [place] [address], [place] [phone] * US Retroperitoneal Complete (04/27/2025 4:46 PM EDT) [facility] BSA 1.98 m2 RIS PACS/VR Anatomical Region Laterality Modality Body Ultrasound Impressions 04/27/2025 5:07 PM EDT Impression: 1. Distal abdominal aortic aneurysm measuring up to 5.7 cm cross-sectional dimension. This document has been electronically signed by: Nilay Keane MD on 04/27/2025 17:07:22 Narrative 04/27/2025 5:07 PM EDT INDICATION: AAA, surveillance US AAA Comparison: None Findings: Aorta reveals a distal abdominal aortic aneurysms measuring up to 5.7 x 4.9 cm transverse and AP dimension. There is lesser ectasia of the mid abdominal aorta at 3.5 x 3.9 cm AP and transverse dimension. Aneurysmal dilatation extends over a craniocaudad distance measured at 7.4 cm. Right common iliac artery maximum diameter 1.2 cm. Left common iliac artery maximum diameter 1.4 cm. us Jeevan Loo MD [facility] [place] PROCEDURES Edited Result - Final * Respiratory virus panel molecular study (04/26/2025 9:52 PM EDT) [facility] Adenovirus Detection by PCR Not Detected Not Detected LAB MICROBIOLOGY METHOD 04/26/2025 10:57 PM EDT [facility] Influenza A PCR Not Detected Not Detected LAB MICROBIOLOGY METHOD 04/26/2025 10:57 PM EDT [facility] Influenza B PCR Not Detected Not Detected LAB MICROBIOLOGY METHOD 04/26/2025 10:57 PM EDT [facility] Coronavirus 229E Not Detected Not Detected LAB MICROBIOLOGY METHOD 04/26/2025 10:57 PM EDT [facility] Coronavirus HKU1 Not Detected Not Detected LAB MICROBIOLOGY METHOD 04/26/2025 10:57 PM EDT [facility] Coronavirus OC43 Not Detected Not Detected LAB MICROBIOLOGY METHOD 04/26/2025 10:57 PM EDT [facility] Coronavirus NL63 Not Detected Not Detected LAB MICROBIOLOGY METHOD 04/26/2025 10:57 PM EDT [facility] Parainfluenza Virus 1 Not Detected Not Detected LAB MICROBIOLOGY METHOD 04/26/2025 10:57 PM EDT [facility] Parainfluenza Virus 2 Not Detected Not Detected LAB MICROBIOLOGY METHOD 04/26/2025 10:57 PM EDT [facility] Parainfluenza Virus 3 Not Detected Not Detected LAB MICROBIOLOGY METHOD 04/26/2025 10:57 PM EDT [facility] Parainfluenza Virus 4 Not Detected Not Detected LAB MICROBIOLOGY METHOD 04/26/2025 10:57 PM EDT [facility] RSV PCR Not Detected Not Detected LAB MICROBIOLOGY METHOD 04/26/2025 10:57 PM EDT [facility] Human Metapneumovirus A and B Not Detected Not Detected LAB MICROBIOLOGY METHOD 04/26/2025 10:57 PM EDT [facility] Rhinovirus/Entero virus Not Detected Not Detected LAB MICROBIOLOGY METHOD 04/26/2025 10:57 PM EDT [facility] Bordetella pertussis Not Detected Not Detected LAB MICROBIOLOGY METHOD 04/26/2025 10:57 PM EDT [facility] Bordetella parapertussis Not Detected Not Detected LAB MICROBIOLOGY METHOD 04/26/2025 10:57 PM EDT [facility] Mycoplasma pneumo by PCR Not Detected Not Detected LAB MICROBIOLOGY METHOD 04/26/2025 10:57 PM EDT [facility] Chlamydia pneumoniae Not Detected Not Detected LAB MICROBIOLOGY METHOD 04/26/2025 10:57 PM EDT [facility] SARS COV-2 Not Detected Not Detected LAB MICROBIOLOGY METHOD 04/26/2025 10:57 PM EDT [facility] Swab Structure of right anterior naris / Unknown Non-blood Collection / Unknown 04/26/2025 9:52 PM EDT 04/26/2025 10:01 PM EDT Narrative [facility] - 04/26/2025 10:57 PM EDT Testing was performed using the [employer] Respiratory Pathogen PCR Assay. All results must be correlated with the clinical findings. Results should not be used as the sole basis for diagnosis. False Negative results may occur from the presence of sequence variants in the region targeted by the assay or the presence of inhibitors. Results may be affected by concurrent antiviral/antimicrobial therapy or levels of organisms that are below the limit of detection. Jennifer WILLIAMSON LAB MICROBIOLOGY - GENERAL OR DERABLES Final Result [facility] [address] [place] [address], * (ABNORMAL) Blood culture pathogens molecular study 2 (04/26/2025 7:14 PM EDT) Staphylococcus species Detected (A) Not Detected LAB MICROBIOLOGY METHOD 04/27/2025 2:16 PM EDT [facility] Blood Venous blood specimen / Unknown Venipuncture / Unknown 04/26/2025 7:14 PM EDT 04/26/2025 7:34 PM EDT Selwyn Blackwood MD LAB MICROBIOLOGY - GENERAL ORDER DEBBIE Final Result [facility] [address] [place] [address], [place] [phone] * Lactate, with Reflex (04/26/2025 7:01 PM EDT) [facility] LACTIC ACID 1.2 0.4 - 2.0 mmol/L LAB CHEMISTRY METHOD 04/26/2025 7:40 PM EDT [facility] Blood Venous blood specimen / Unknown Venipuncture / Unknown 04/26/2025 7:01 PM EDT 04/26/2025 7:07 PM EDT us Selwyn Blackwood MD LAB BLOOD ORDERABLES Final Resul t Performing Organization Address [facility] Co de Phone Number [facility] [address] [place] [address], [place] [phone] * Troponin I High Sensitivity (04/26/2025 7:01 PM EDT) [facility] High Sensitivity Troponin I 23 <=79 ng/L LAB CHEMISTRY METHOD 04/26/2025 7:41 PM EDT [facility] Blood Venous blood specimen / Unknown Venipuncture / Unknown 04/26/2025 7:01 PM EDT 04/26/2025 7:07 PM EDT Narrative [facility] - 04/26/2025 7:41 PM EDT High levels of biotin in samples may falsely decrease hsTroponin values. Use caution when interpreting hsTroponin results in patients taking biotin who exhibit renal impairment (eGFR <60) or in patients taking more than 20 mg/day of biotin. us Selwyn Blackwood MD LAB BLOOD ORDERABLES Final Resul t Performing Organization Address [facility]/ZIP Co de Phone Number [facility] [address] [place] [address], [place] [phone] * B-Type Natriuretic Peptide (BNP) (04/26/2025 7:01 PM EDT) BNP 60 <=100 pcg/mL LAB CHEMISTRY METHOD 04/26/2025 7:47 PM EDT [facility] Blood Venous blood specimen / Unknown Venipuncture / Unknown 04/26/2025 7:01 PM EDT 04/26/2025 7:07 PM EDT us Selwyn Blackwood MD LAB BLOOD ORDERABLES Final Resul t [facility] [address] [place] [address], [place] [phone] * XR Chest 1 View (04/26/2025 5:50 PM EDT) Anatomical Region Laterality Modality Body Radiographic Evon ging 04/27/2025 11:0 1 AM EDT Impressions 04/27/2025 11:03 AM EDT Impression: 1. Patchy bibasilar infiltrates or atelectasis. 2. Chronic postop changes in the right hemithorax consistent with previous partial lung resections. [employer] PA ([id number]) -------- FINAL REPORT -------- Dictated By: Jailyn Burnham Dictated Date: 04/27/2025 11:01 ET Assigned Physician: Jailyn Burnham Reviewed and Electronically Signed By: Jailyn Burnham Signed Date: 04/27/2025 11:03 ET Workstation ID: [id number] Transcribed By: Self Edit Transcribed Date: 04/27/2025 11:01 ET Narrative 04/27/2025 11:03 AM EDT History: Dyspnea. Comparison: 09/27/17, thoracic CT 02/01/22 Findings: Portable AP upright chest at 5:51 PM. The cardiac silhouette remains normal in size. Chronic postop changes are again seen in the right hemithorax consistent with previous partial lung resections. The vascular markings are attenuated in the upper lobes, consistent with underlying severe emphysema, with CT correlation. There are mild patchy airspace opacities at the lung bases, appearing new. No sizable pleural fluid collection is seen. Procedure Note Jailyn Burnham MD - 04/27/2025 History: Dyspnea. Comparison: 09/27/17, thoracic CT 02/01/22 Findings: Portable AP upright chest at 5:51 PM. The cardiac silhouette remainsnormal in size. Chronic postop changes are again seen in the righthemithorax consistent with previous partial lung resections. The vascularmarkings are attenuated in the upper lobes, consistent with underlyingsevere emphysema, with CT correlation. There are mild patchy airspaceopacities at the lung bases, appearing new. No sizable pleural fluidcollection is seen. IMPRESSION: Impression: 1. Patchy bibasilar infiltrates or atelectasis. 2. Chronic postop changes in the right hemithorax consistent with previouspartial lung resections. [employer] PA ([id number]) -------- FINAL REPORT -------- Dictated By: Jailyn Burnham Dictated Date: 04/27/2025 11:01 ET Assigned Physician: Jailyn Burnham Reviewed and Electronically Signed By: Jailyn Burnham Signed Date: 04/27/2025 11:03 ET Workstation ID: [id number] Transcribed By: Self Edit Transcribed Date: 04/27/2025 11:01 ET Selwyn Blackwood MD IMG XR PROCEDURES Final Result * Magnesium (04/26/2025 5:32 PM EDT) Magnesium 2.3 1.9 - 2.6 mg/dL LAB CHEMISTRY METHOD 04/26/2025 8:51 PM EDT [facility] Blood Venous blood specimen / Unknown Venipuncture / Unknown 04/26/2025 5:32 PM EDT 04/26/2025 5:48 PM EDT Michael Terrazas MD LAB BLOOD ORDERABLES Final Result [facility] [address] [place] [address], [place] [phone] * Hepatic function panel (04/26/2025 5:32 PM EDT) Total Protein 6.9 6.0 - 8.0 g/dL LAB CHEMISTRY METHOD 04/26/2025 8:51 PM EDT [facility] Albumin 3.4 3.2 - 5.0 g/dL LAB CHEMISTRY METHOD 04/26/2025 8:51 PM EDT [facility] Total Bilirubin 0.9 0.0 - 1.4 mg/dL LAB CHEMISTRY METHOD 04/26/2025 8:51 PM EDT [facility] Bilirubin, Direct 0.2 0.0 - 0.3 mg/dL LAB CHEMISTRY METHOD 04/26/2025 8:51 PM EDT [facility] Bilirubin, Indirect 0.7 0.0 - 1.1 mg/dL LAB CHEMISTRY METHOD 04/26/2025 8:51 PM EDT [facility] ALT (SGPT) 30 10 - 60 unit/L LAB CHEMISTRY METHOD 04/26/2025 8:51 PM EDT [facility] AST (SGOT) 12 10 - 42 unit/L LAB CHEMISTRY METHOD 04/26/2025 8:51 PM EDT [facility] Alkaline Phosphatase 69 42 - 121 unit/L LAB CHEMISTRY METHOD 04/26/2025 8:51 PM EDT [facility] Blood Venous blood specimen / Unknown Venipuncture / Unknown 04/26/2025 5:32 PM EDT 04/26/2025 5:48 PM EDT us Michael Terrazas MD LAB BLOOD ORDERABLES Final Result [facility] [address] [place] [address], * AL CRITICAL CARE 30-74 MINUTES (04/26/2025 5:17 PM EDT) Narrative Selwyn Blackwood MD - 04/26/2025 5:17 PM EDT Selwyn Blackwood MD 05/08/2025 10:54 AM Critical Care Performed by: Selwyn Blackwood MD Authorized by: Selwyn Blackwood MD Critical care provider statement: Critical care time (minutes): 36 Total face to face critical care time (minutes): 36 Critical care time was exclusive of: Separately billable procedures and treating other patients Critical care was necessary to treat or prevent imminent or life-threatening deterioration of the following conditions: Respiratory failure Critical care was time spent personally by me on the following activities: Development of treatment plan with patient or surrogate, discussions with consultants, evaluation of patient's response to treatment, ordering and review of laboratory studies, ordering and review of radiographic studies, re-evaluation of patient's condition, review of old charts, ordering and performing treatments and interventions and examination of patient I assumed direction of critical care for this patient from another provider in my specialty: no Care discussed with: admitting provider us Selwyn Blackwood MD IN CLINIC/BEDSIDE ORDERABLES Fin al Result from Last 3 Months Insurance [id number] [employer] Member Subscriber Plan / Payer (Ef fective 2020-Present) Name:Gabino Tony Relation to Subscriber:Self Name:Gabino Tony Payer ID:[id number] Group ID:Not on file Type:Not on file Address: [place] [address] [address] [id number] MEDICA[place] - [place] Advance Directives Documents on File Type Date Recorded Patient Pens And Pencils Dipper Expl anation Health Care Decision (hx) 07/23/2015 AD DIAZ DIRECTIVE Health Care Decision (hx) 07/23/2015 AD DIAZ DIRECTIVE Health Care Decision (hx) 07/23/2015 AD DIAZ DIRECTIVE Health Care Decision (hx) 07/23/2015 AD DIAZ DIRECTIVE Health Care Decision (hx) 07/23/2015 AD DIAZ DIRECTIVE Health Care Decision (hx) 07/23/2015 Ondina Tony AD DIAZ DIRECTIVE Health Care Decision (hx) 06/19/2015 AD DIAZ DIRECTIVE Health Care Decision (hx) 06/19/2015 AD DIAZ DIRECTIVE Health Care Decision (hx) 06/19/2015 AD DIAZ DIRECTIVE Health Care Decision (hx) 06/19/2015 AD DIAZ DIRECTIVE Health Care Decision (hx) 06/19/2015 AD DIAZ DIRECTIVE Health Care Decision (hx) 06/19/2015 AD DIAZ DIRECTIVE * Full Code - Default (Latest Code Status on File) Date Activated Date Inactivated Comments 05/08/2025 9:24 PM 05/09/2025 5:24 PM This is order is used when code status has not been discussed with the patient, or code status is otherwise unknown/unconfirmed To update the patient's code status, place a code status order. Do not modify or discontinue any currently active code status orders. * Full Code - Default Date Activated Date Inactivated Comments 04/26/2025 9:06 PM 05/03/2025 5:15 PM This is order is used when code status has not been discussed with the patient, or code status is otherwise unknown/unconfirmed To update the patient's code status, place a code status order. Do not modify or discontinue any currently active code status orders. Healthcare Agents on File Name Relationship Healthcare Agent [facility] p Communication Ondina Toyn Spouse Health Care Agent Care Teams Director Stars Relationship Specialty Start Date End Date Amber Ramos MD [address] [place] [id number] PCP - General Internal Medicine 05/22/25
== END 2025-05-23 10:49 | disposition home or self-care (01) ==
LOC: HO.HPS 09:56
PROVIDERS: PCP Internal Medicine; Visit Provider Hospitalist
DX: J96.11 Chronic respiratory failure with hypoxia (principal); J44.1 Chronic obstructive pulmonary disease with (acute) exacerbation; C34.90 Malignant neoplasm of unspecified part of unspecified bronchus or lung; R91.8 Other nonspecific abnormal finding of lung field
CPT/HCPCS: 94618; 99214; G2211

== ENCOUNTER 2025-05-23 09:56 | Outpatient (REF) | payer OTHER, SELFPAY ==
[2025-05-23 11:03] LABS: MANUAL DIFF FLAG NO
[2025-05-23 11:04] LABS: Hematocrit 42.9 % (42.0-52.0); Hemoglobin 13.7 g/dl (14.0-18.0); Imm Gran Abs Auto 0.12 X10*3/uL (0.00-0.03); Imm Gran Pct Auto 1.3 % (0.0-0.4); Lymphocytes Absolute Auto 0.6 X10*3/uL (1.2-4.9); Mean Corpuscular HGB Conc 31.9 g/dl (31.0-36.0); Mean Corpuscular Hemoglobin 28.4 pg (27.0-33.0); Mean Corpuscular Volume 89.0 fL (80.0-98.0); NRBC Abs Auto 0.000 X10*3/uL (0.0-0.012); NRBC Pct Auto 0.0 /100WBC (0.0-0.2); Platelet Count 210 X10*3/uL (160-400); Red Blood Count 4.82 X10*6/uL (4.60-5.80); White Blood Count 9.2 X10*3/uL (4.8-10.8)
[2025-05-23 11:07] LABS: Venous Blood Gas Refer to POC result
[2025-05-23 11:08] LABS: VBG HCO3 26 mmol/L (22-26); VBG O2 % Saturation 94.0 %
[2025-05-23 11:28] LABS: Anion Gap 15 (12-20); Blood Urea Nitrogen 23 mg/dL (9-16); Calcium 10.0 mg/dL (8.4-10.2); Carbon Dioxide 24 mmol/L (22-29); Chloride 107 mmol/L (96-108); Estimated Glomerular Filt Rate > 60; Iron 37 mcg/dL (45-160); Percent Iron Saturation 17 % (15-50); Potassium 4.6 mmol/L (3.3-5.1); Sodium 141 mmol/L (135-145); Total Iron Binding Capacity 215 mcg/dL (228-428); Unsaturated Iron Binding 178 ug/dL
[2025-05-23 11:42] LABS: Ferritin 510 ng/mL (20-250)
== END 2025-05-23 09:57 | disposition home or self-care (01) ==
LOC: HO.LAB 09:56
PROVIDERS: PCP Internal Medicine; Visit Provider Hospitalist
DX: J96.11 Chronic respiratory failure with hypoxia (principal); J44.1 Chronic obstructive pulmonary disease with (acute) exacerbation; K21.9 Gastro-esophageal reflux disease without esophagitis; M72.0 Palmar fascial fibromatosis [Dupuytren]; J43.2 Centrilobular emphysema; C34.90 Malignant neoplasm of unspecified part of unspecified bronchus or lung; R91.8 Other nonspecific abnormal finding of lung field; Z99.81 Dependence on supplemental oxygen; Z87.891 Personal history of nicotine dependence
CPT/HCPCS: 36415; 80048; 82728; 82803; 83540; 85025; 94618; 99212